=== PATIENT | female | born 1935 | race Caucasian/White ===

== ENCOUNTER 2016-09-18 13:28 | Emergency (ER) | payer MEDICARE ==
[2016-09-18 15:06] LABS: Basophils % (A) 0 %; CH 29.8; CHCM 33.2; Eosinophils % (A) 0 %; HCT 36.5 % (34.0-46.0); HDW 3.43; HGB 12.2 gm/dL (11.4-16.0); Luc # (Auto) 0.12; Luc % (Auto) 3; Lymphocytes # (A) 0.7 k/uL (1.0-4.8); Lymphocytes % (A) 15 %; MCH 30.2 pg (25.0-35.0); MCHC 33.4 g/dL (31.0-37.0); MCV 90.3 fL (80.0-100.0); Mean Platelet Volume 7.1; Monocytes # (A) 0.3 k/uL (0-1.0); Monocytes % (A) 6 %; Neutrophils # (A) 3.5 k/uL (1.3-7.7); Neutrophils % (A) 76 %; Poikilocytosis Slight; RBC 4.04 m/uL (3.80-5.40); RDW 13.8 % (11.5-15.5); WBC 4.6 k/uL (3.8-10.6); WBC (Perox) 4.48
[2016-09-18] MEDS ORDERED: cefTRIAXone 2,000 MG in SODIUM CHLORIDE 0.9% 100 ML IVPB STA (15:11)
[2016-09-18] MEDS ORDERED: MORPHINE SULFATE 4 MG/ML SYRINGE IVP STA (15:15)
[2016-09-18] MEDS ORDERED: ONDANSETRON 4 MG/2 ML VIAL IVP STA (15:15)
[2016-09-18 15:16] LABS: INR 1.1 (<1.1); Partial Thromboplastin Time 22.5 sec (22.0-30.0); Prothrombin Time 10.9 sec (9.0-12.0)
[2016-09-18 15:22] LABS: ALT 26 U/L (9-52); AST 26 U/L (14-36); Alkaline Phosphatase 73 U/L (38-126); Anion Gap 14 mmol/L; Blood Urea Nitrogen 9 mg/dL (7-17); Calcium 9.1 mg/dL (8.4-10.2); Carbon Dioxide 29 mmol/L (22-30); Chloride 97 mmol/L (98-107); Glucose 135 mg/dL (74-99); Magnesium 1.8 mg/dL (1.6-2.3); Non-African American GFR(MDRD) >60 (>60 ml/min/1.73 sqM); Sodium 140 mmol/L (137-145); Total Protein 7.2 g/dL (6.3-8.2)
[2016-09-18 15:24] LABS: Potassium 2.6 mmol/L (3.5-5.1)
[2016-09-18] MEDS ORDERED: ACETAMINOPHEN TAB 500 MG TAB PO STA (15:27)
[2016-09-18] MEDS ORDERED: POTASSIUM CHLORIDE ORAL LIQUID 40 MEQ/30 ML CUP PO ONE ×2 (15:27)
--- NOTE | 2016-09-18 15:30 | XR ---
EXAMINATION TYPE: XR chest 2V DATE OF EXAM: 09/18/2016 3:17 PM COMPARISON: 05/05/2016 HISTORY: Weakness TECHNIQUE: Frontal and lateral views of the chest are obtained. FINDINGS: There is no heart failure nor confluent pneumonic infiltrate. There are no hilar masses. T here are chest leads. There is old left posterior healed rib fractures. Thoracic aorta is atheromatou s. IMPRESSION: No active cardiopulmonary disease. No change.
[2016-09-18 15:32] LABS: Creatine Kinase 96 U/L (30-135)
--- NOTE | 2016-09-18 15:36 | CT ---
EXAMINATION TYPE: CT brain wo con DATE OF EXAM: 09/18/2016 3:29 PM COMPARISON: 05/07/2015 HISTORY: Weakness. CT DLP: 1072.90 mGycm Automated exposure control for dose reduction was used. FINDINGS: There is diffuse moderate cerebral cortical atrophy. There is no mass effect nor midline shift. There is no sign of intracranial hemorrhage. The calvarium is intact. IMPRESSION: Cerebral atrophy. No acute intracranial abnormality. Chronic small vessel ischemia. No adverse change compared to old exam.
[2016-09-18 15:43] LABS: Creatine Kinase MB 0.5 ng/mL (0.0-2.4); Troponin I <0.012 ng/mL (0.000-0.034)
[2016-09-18 16:53] VITALS: RESP 18
--- NOTE | 2016-09-18 17:46 | ED ---
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 and the headaches been worse since she had a closed head injury there was about 4 years ago on arrival her blood pressure is 323/33 we repeated the blood pressure and it was 175/74 and later he dropped down to 155 systolic she had some emesis last night denies any neck stiffness denies any fever no chills no abdominal pain at this point no frequency urgency dysuria no symptoms of TIA or CVA - Related Data Home Medications Medication Instructions Recorded Confirmed Atorvastatin [Lipitor] 10 mg PO DAILY 05/05/15 09/18/16 Levothyroxine Sodium [Synthroid] 25 mcg PO DAILY 05/05/15 09/18/16 Valsartan [Diovan] 40 mg PO BID 05/05/15 09/18/16 levETIRAcetam [Keppra] 500 mg PO BID 05/05/15 09/18/16 Vortioxetine Hydrobromide 20 mg PO DAILY 05/04/16 09/18/16 [Trintellix] HYDROcodone/APAP 10-325MG [Ozone 1 tab PO Q4HR PRN 09/18/16 09/18/16 10-325] Previous Rx's Medication Instructions Recorded Acetaminophen Tab [Tylenol] 650 mg PO Q6HR PRN #0 tab 05/07/16 Potassium Chloride [Klor-Con] 40 meq PO DAILY #5 packet 09/18/16 predniSONE 50 mg PO DAILY #5 tab 09/18/16 Allergies Allergy/AdvReac Type Severity Reaction Status Date / Time No Known Allergies Allergy Verified 09/18/16 13:51 Review of Systems ROS Statement: Those systems with pertinent positive or pertinent negative responses have been documented in the HPI. ROS Other: All systems not noted in ROS Statement are negative. Past Medical History Past Medical History: COPD, Hyperlipidemia, Hypertension, Thyroid Disorder Additional Past Medical History / Comment(s): 05/05/15 R hip pain following fall. Pt states she lost balance and fell. She is being admitted with fracture neck R femur. Other HX: closed head injuries with falls and once with brain bleed following fall- on keppra prophlactically, odontoid fx 2014, L hip fx after fall with surgey, hypothyroidism, UTI. History of Any Multi-Drug Resistant Organisms: None Reported Past Surgical History: Adenoidectomy, Appendectomy, Cholecystectomy, Hysterectomy, Joint Replacement, Orthopedic Surgery, Tonsillectomy Additional Past Surgical History / Comment(s): partial left hip replacement Past Anesthesia/Blood Transfusion Reactions: No Reported Reaction Additional Past Anesthesia/Blood Transfusion Reaction / Comment(s): Pt has received blood without reaction. Past Psychological History: Depression Additional Psychological History / Comment(s): Pt resides with her daughter, Deb. She uses a walker to ambulate. She is independent with her ADLs. 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 She does not drive-her gutierrez takes her to appts. Smoking Status: Current every day smoker Past Alcohol Use History: None Reported Additional Past Alcohol Use History / Comment(s): Pt smokes about 1/2 ppd. She started smoking about age 59 yrs. Past Drug Use History: None Reported - Past Family History Father Family Medical History: CVA/TIA Additional Family Medical History / Comment(s): Father had several CVAs and at age 72 yrs. Mother Family Medical History: Cancer Additional Family Medical History / Comment(s): Mother had cancer (do not know type) and at age 72 yrs. General Exam - General Exam Comments Initial Comments: General: The patient is awake and alert, in mild distress because of the headache Skin: Skin is warm and dry and no rashes or lesions are noted. Eye: Pupils are equal, round and reactive to light, extra-ocular movements are intact; there is normal conjunctiva bilaterally. Ears, nose, mouth and throat: There are moist mucous membranes and no oral lesions. Neck: The neck is supple, there is no tenderness Cardiovascular: There is a regular rate and rhythm. No murmur, rub or gallop is appreciated. Respiratory: To auscultation bilateral, no wheezing no rhonchi no distress respiratory contreras noticed Gastrointestinal: Soft, non-distended, non-tender abdomen without masses or organomegaly noted. There is no rebound or guarding present. Bowel sounds are unremarkable. Back: There is no tenderness to palpation in the midline. There is no obvious deformity. Musculoskeletal: Normal ROM, no tenderness, There is no pedal edema. There is no calf tenderness or swelling. No cords were appreciated. Neurological: CN II-XII intact, Cranial nerves III through XII are intact. There are no obvious motor or sensory deficits. Coordination appears grossly intact. Speech is normal. Psychiatric: Cooperative, appropriate mood & affect, normal judgment. Limitations: no limitations Course Vital Signs 09/18/16 09/18/16 09/18/16 13:32 14:59 15:31 Temperature 98.4 F 100.4 F H Pulse Rate 81 64 67 Respiratory 16 17 16 Rate Blood Pressure 223/133 184/85 164/74 O2 Sat by Pulse 94 L 95 95 Oximetry 09/18/16 16:52 Temperature 99.0 F Pulse Rate 61 Respiratory 18 Rate Blood Pressure 150/71 O2 Sat by Pulse 97 Oximetry She was giving some mom morphine and Zofran for nausea as well as headache, her labs are reviewed and now those were discussed with the family CBC is negative INR is negative potassium is 2.6, BS metabolic panel troponin head CT and chest x-ray all ordered negative, she has this chronic headache and she has a history of multiple falls I had a discussion at great length with the family that starting her on any narcotics wouldn't improve her chances of for first and her chances of fall that's from one at home that we'll do a trial of prednisone 50 mg daily for for next 5 days and as far as as far as potassium is concerned she be on given potassium 40 mEq by mouth daily for next 3 days and she will go see her family doctor and get a potassium level checked - Reevaluation(s) Reevaluation #1: 09/18/16 17:49 And discussion with the patient and her son her son is a registered nurse they are comfortable going home and they're happy to follow with the family doctor in next day or 2 as well as potassium is concerned Medical Decision Making - Lab Data Result diagrams: 09/18/16 14:16 09/18/16 14:16 Lab Results 09/18/16 09/18/16 09/18/16 Range/Units 14:16 14:16 14:16 WBC 4.6 (3.8-10.6) k/uL RBC 4.04 (3.80-5.40) m/uL Hgb 12.2 (11.4-16.0) gm/dL Hct 36.5 (34.0-46.0) % MCV 90.3 (80.0-100.0) fL MCH 30.2 (25.0-35.0) pg MCHC 33.4 (31.0-37.0) g/dL RDW 13.8 (11.5-15.5) % Plt Count 151 (150-450) k/uL Neutrophils % 76 % Lymphocytes % 15 % Monocytes % 6 % Eosinophils % 0 % Basophils % 0 % Neutrophils # 3.5 (1.3-7.7) k/uL Lymphocytes # 0.7 L (1.0-4.8) k/uL Monocytes # 0.3 (0-1.0) k/uL Eosinophils # 0.0 (0-0.7) k/uL Basophils # 0.0 (0-0.2) k/uL Poikilocytosis Slight PT (9.0-12.0) sec INR (<1.1) APTT (22.0-30.0) sec Sodium 140 (137-145) mmol/L Potassium 2.6 L* (3.5-5.1) mmol/L Chloride 97 L (98-107) mmol/L Carbon Dioxide 29 (22-30) mmol/L Anion Gap 14 mmol/L BUN 9 (7-17) mg/dL Creatinine 0.76 (0.52-1.04) mg/dL Est GFR (MDRD) Af Amer >60 (>60 ml/min/1.73 sqM) Est GFR (MDRD) Non-Af >60 (>60 ml/min/1.73 sqM) Glucose 135 H (74-99) mg/dL Plasma Lactic Acid Tristan (0.7-2.0) mmol/L Calcium 9.1 (8.4-10.2) mg/dL Magnesium 1.8 (1.6-2.3) mg/dL Total Bilirubin 1.0 (0.2-1.3) mg/dL AST 26 (14-36) U/L ALT 26 (9-52) U/L Alkaline Phosphatase 73 (38-126) U/L Total Creatine Kinase 96 (30-135) U/L CK-MB (CK-2) 0.5 (0.0-2.4) ng/mL CK-MB (CK-2) Rel Index 0.5 Troponin I <0.012 (0.000-0.034) ng/mL Total Protein 7.2 (6.3-8.2) g/dL Albumin 4.2 (3.5-5.0) g/dL 09/18/16 09/18/16 Range/Units 14:16 14:16 WBC (3.8-10.6) k/uL RBC (3.80-5.40) m/uL Hgb (11.4-16.0) gm/dL Hct (34.0-46.0) % MCV (80.0-100.0) fL MCH (25.0-35.0) pg MCHC (31.0-37.0) g/dL RDW (11.5-15.5) % Plt Count (150-450) k/uL Neutrophils % % Lymphocytes % % Monocytes % % Eosinophils % % Basophils % % Neutrophils # (1.3-7.7) k/uL Lymphocytes # (1.0-4.8) k/uL Monocytes # (0-1.0) k/uL Eosinophils # (0-0.7) k/uL Basophils # (0-0.2) k/uL Poikilocytosis PT 10.9 (9.0-12.0) sec INR 1.1 (<1.1) APTT 22.5 (22.0-30.0) sec Sodium (137-145) mmol/L Potassium (3.5-5.1) mmol/L Chloride (98-107) mmol/L Carbon Dioxide (22-30) mmol/L Anion Gap mmol/L BUN (7-17) mg/dL Creatinine (0.52-1.04) mg/dL Est GFR (MDRD) Af Amer (>60 ml/min/1.73 sqM) Est GFR (MDRD) Non-Af (>60 ml/min/1.73 sqM) Glucose (74-99) mg/dL Plasma Lactic Acid Tristan 1.5 (0.7-2.0) mmol/L Calcium (8.4-10.2) mg/dL Magnesium (1.6-2.3) mg/dL Total Bilirubin (0.2-1.3) mg/dL AST (14-36) U/L ALT (9-52) U/L Alkaline Phosphatase (38-126) U/L Total Creatine Kinase (30-135) U/L CK-MB (CK-2) (0.0-2.4) ng/mL CK-MB (CK-2) Rel Index Troponin I (0.000-0.034) ng/mL Total Protein (6.3-8.2) g/dL Albumin (3.5-5.0) g/dL Disposition Clinical Impression: Headache, Hypokalemia Disposition: HOME SELF-CARE Condition: Fair Prescriptions: Potassium Chloride [Klor-Con] 40 meq PO DAILY #5 packet predniSONE 50 mg PO DAILY #5 tab
[2016-09-18 17:47] LABS: Appearance,Urine Cloudy (Clear); Bacteria,Urine Few /hpf; Bilirubin,Urine Negative (Negative); Glucose,Urine (UA) Negative (Negative); Ketones,Urine 1+ (Negative); Leukocyte Esterase,Urine Negative (Negative); Mucus,Urine Rare /hpf; Nitrite,Urine Positive (Negative); Particle Count 10467; Protein,Urine 2+ (Negative); RBC,Urine 18 /hpf (0-5); Specific Gravity,Urine 1.019 (1.001-1.035); Squamous Epithelial Cell,Urine 3 /hpf (0-4); UA Billing (MACRO vs. MICRO) MICRO; Urobilinogen,Urine <2.0 mg/dL (<2.0); WBC,Urine 10 /hpf (0-5)
[2016-09-18 18:17] VITALS: BP 142/67; PULSE 88; TEMP 98.5
== END 2016-09-18 18:20 | disposition home or self-care (01) ==
LOC: EC 13:28
DX: E87.6 Hypokalemia (principal); R51 Headache; R11.2 Nausea with vomiting, unspecified; F17.200 Nicotine dependence, unspecified, uncomplicated; E78.5 Hyperlipidemia, unspecified; I10 Essential (primary) hypertension; E07.9 Disorder of thyroid, unspecified; F32.9 Major depressive disorder, single episode, unspecified; Z79.899 Other long term (current) drug therapy
CPT/HCPCS: 36415; 93005; 80053; 82550; 82553; 83605; 83735; 84484; 85025; 85610; 85730; 81001; 87040; 71020; 70450; 99285; 96365; 96366 ×2; 96375 ×2; J2270; J2405; J0696

== ENCOUNTER 2017-08-15 10:14 | Emergency (ER) | payer MEDICARE ==
--- NOTE | 2017-08-15 11:21 | ED ---
General Adult HPI - General Chief complaint: Fall Stated complaint: Fall Time Seen by Provider: 08/15/17 10:39 Source: patient, family, EMS, RN notes reviewed Mode of arrival: EMS Limitations: no limitations - History of Present Illness Initial comments: This 81-year-old female presents emergency Department chief complaint fall. Patient states that she became dizzy, lightheaded and states that she had fallen. Patient states that she struck the back of her head, neck region on the cabinet and fell down the ground. She does complain of pain along her neck and upper back region. She's had a prior cervical fracture. Patient denies any extremity injuries. She does complain of bilateral hip pain but states this is slightly chronic in nature. She denies any low back pain denies any bowel bladder incontinence or retention. Patient states that there is no loss conscious. Family did pick her up FOR burn bed because she wanted to rest. Patient symptoms were not improving so they called EMS. - Related Data Home Medications Medication Instructions Recorded Confirmed Atorvastatin [Lipitor] 10 mg PO HS 05/05/15 08/15/17 Levothyroxine Sodium [Synthroid] 25 mcg PO DAILY 05/05/15 08/15/17 Valsartan [Diovan] 40 mg PO BID 05/05/15 08/15/17 levETIRAcetam [Keppra] 500 mg PO BID 05/05/15 08/15/17 DULoxetine HCL [Cymbalta] 60 mg PO DAILY 08/15/17 08/15/17 HYDROcodone/APAP 5-325MG [Yarnell 1 tab PO Q6H PRN 08/15/17 08/15/17 5-325] buPROPion HCL [Wellbutrin SR] 150 mg PO BID 08/15/17 08/15/17 Previous Rx's Medication Instructions Recorded Sulfamethox-Tmp 800-160Mg [Bactrim 1 each PO Q12HR #10 tab 08/15/17 Ds] Allergies Allergy/AdvReac Type Severity Reaction Status Date / Time No Known Allergies Allergy Verified 08/15/17 11:08 Review of Systems ROS Statement: Those systems with pertinent positive or pertinent negative responses have been documented in the HPI. ROS Other: All systems not noted in ROS Statement are negative. Past Medical History Past Medical History: COPD, Hyperlipidemia, Hypertension, Thyroid Disorder Additional Past Medical History / Comment(s): 05/05/15 R hip pain following fall. Pt states she lost balance and fell. She is being admitted with fracture neck R femur. Other HX: closed head injuries with falls and once with brain bleed following fall- on keppra prophlactically, odontoid fx 2013, L hip fx after fall with surgey, hypothyroidism, UTI. History of Any Multi-Drug Resistant Organisms: None Reported Past Surgical History: Adenoidectomy, Appendectomy, Cholecystectomy, Hysterectomy, Joint Replacement, Orthopedic Surgery, Tonsillectomy Additional Past Surgical History / Comment(s): partial left hip replacement Past Anesthesia/Blood Transfusion Reactions: No Reported Reaction Additional Past Anesthesia/Blood Transfusion Reaction / Comment(s): Pt has received blood without reaction. Past Psychological History: Depression Smoking Status: Current every day smoker Past Alcohol Use History: None Reported Past Drug Use History: None Reported - Past Family History Father Family Medical History: CVA/TIA Additional Family Medical History / Comment(s): Father had several CVAs and at age 72 yrs. Mother Family Medical History: Cancer Additional Family Medical History / Comment(s): Mother had cancer (do not know type) and at age 72 yrs. General Exam Limitations: no limitations General appearance: alert, in no apparent distress Head exam: Present: atraumatic, normocephalic, normal inspection Eye exam: Present: normal appearance, PERRL, EOMI. Absent: scleral icterus, conjunctival injection, periorbital swelling ENT exam: Present: normal exam, normal oropharynx, mucous membranes moist, TM's normal bilaterally, normal external ear exam Neck exam: Present: normal inspection, tenderness. Absent: meningismus, full ROM (Patient in c-collar), lymphadenopathy Respiratory exam: Present: normal lung sounds bilaterally. Absent: respiratory distress, wheezes, rales, rhonchi, stridor, chest wall tenderness Cardiovascular Exam: Present: regular rate, normal rhythm, normal heart sounds. Absent: systolic murmur, diastolic murmur, rubs, gallop, clicks GI/Abdominal exam: Present: soft, normal bowel sounds. Absent: distended, tenderness, guarding, rebound, rigid Extremities exam: Present: normal inspection, full ROM, normal capillary refill. Absent: tenderness, pedal edema, joint swelling, calf tenderness Back exam: Present: full ROM, tenderness (Tenderness diffusely of the thoracic region, over the bilateral scapular region), vertebral tenderness. Absent: paraspinal tenderness Neurological exam: Present: alert, oriented X3, CN II-XII intact, reflexes normal. Absent: motor sensory deficit Skin exam: Present: warm, dry, intact, normal color. Absent: rash Course Vital Signs 08/15/17 08/15/17 10:25 11:38 Temperature 98.4 F Pulse Rate 85 77 Respiratory 16 16 Rate Blood Pressure 199/81 193/95 O2 Sat by Pulse 95 95 Oximetry Medical Decision Making - Medical Decision Making 81-year-old female presented emergency department with chief complaint of fall. Patient did have an episode of dizziness prior to it. She's been having ongoing dizziness. Patient x-ray shows possible new be determined compression fracture. Patient does have chronic pain meds at home. She'll follow up with her primary care physician. Patient CT unremarkable. Patient does have nitrite positive UTI. Patient's laboratory does reveal mild hypokalemia with this was replaced. Patient will be discharged at this time. - Lab Data Result diagrams: 08/15/17 11:17 08/15/17 11:17 Lab Results 08/15/17 08/15/17 08/15/17 Range/Units 11:17 11:17 11:17 WBC 7.6 (3.8-10.6) k/uL RBC 4.15 (3.80-5.40) m/uL Hgb 11.9 (11.4-16.0) gm/dL Hct 36.9 (34.0-46.0) % MCV 89.1 (80.0-100.0) fL MCH 28.6 (25.0-35.0) pg MCHC 32.1 (31.0-37.0) g/dL RDW 13.5 (11.5-15.5) % Plt Count 201 (150-450) k/uL Neutrophils % 83 % Lymphocytes % 10 % Monocytes % 4 % Eosinophils % 1 % Basophils % 0 % Neutrophils # 6.3 (1.3-7.7) k/uL Lymphocytes # 0.7 L (1.0-4.8) k/uL Monocytes # 0.3 (0-1.0) k/uL Eosinophils # 0.1 (0-0.7) k/uL Basophils # 0.0 (0-0.2) k/uL Sodium 142 (137-145) mmol/L Potassium 3.1 L (3.5-5.1) mmol/L Chloride 102 (98-107) mmol/L Carbon Dioxide 29 (22-30) mmol/L Anion Gap 11 mmol/L BUN 8 (7-17) mg/dL Creatinine 0.82 (0.52-1.04) mg/dL Est GFR (MDRD) Af Amer >60 (>60 ml/min/1.73 sqM) Est GFR (MDRD) Non-Af >60 (>60 ml/min/1.73 sqM) Glucose 93 (74-99) mg/dL Calcium 9.3 (8.4-10.2) mg/dL Magnesium 2.0 (1.6-2.3) mg/dL Total Bilirubin 0.7 (0.2-1.3) mg/dL AST 21 (14-36) U/L ALT 26 (9-52) U/L Alkaline Phosphatase 83 (38-126) U/L Troponin I <0.012 (0.000-0.034) ng/mL Total Protein 6.6 (6.3-8.2) g/dL Albumin 3.7 (3.5-5.0) g/dL Urine Color Urine Appearance (Clear) Urine pH (5.0-8.0) Ur Specific Bussey (1.001-1.035) Urine Protein (Negative) Urine Glucose (UA) (Negative) Urine Ketones (Negative) Urine Blood (Negative) Urine Nitrite (Negative) Urine Bilirubin (Negative) Urine Urobilinogen (<2.0) mg/dL Ur Leukocyte Esterase (Negative) Urine WBC (0-5) /hpf Ur Squamous Epith Cells (0-4) /hpf Urine Bacteria (None) /hpf Hyaline Casts (0-2) /lpf 08/15/17 Range/Units 13:30 WBC (3.8-10.6) k/uL RBC (3.80-5.40) m/uL Hgb (11.4-16.0) gm/dL Hct (34.0-46.0) % MCV (80.0-100.0) fL MCH (25.0-35.0) pg MCHC (31.0-37.0) g/dL RDW (11.5-15.5) % Plt Count (150-450) k/uL Neutrophils % % Lymphocytes % % Monocytes % % Eosinophils % % Basophils % % Neutrophils # (1.3-7.7) k/uL Lymphocytes # (1.0-4.8) k/uL Monocytes # (0-1.0) k/uL Eosinophils # (0-0.7) k/uL Basophils # (0-0.2) k/uL Sodium (137-145) mmol/L Potassium (3.5-5.1) mmol/L Chloride (98-107) mmol/L Carbon Dioxide (22-30) mmol/L Anion Gap mmol/L BUN (7-17) mg/dL Creatinine (0.52-1.04) mg/dL Est GFR (MDRD) Af Amer (>60 ml/min/1.73 sqM) Est GFR (MDRD) Non-Af (>60 ml/min/1.73 sqM) Glucose (74-99) mg/dL Calcium (8.4-10.2) mg/dL Magnesium (1.6-2.3) mg/dL Total Bilirubin (0.2-1.3) mg/dL AST (14-36) U/L ALT (9-52) U/L Alkaline Phosphatase (38-126) U/L Troponin I (0.000-0.034) ng/mL Total Protein (6.3-8.2) g/dL Albumin (3.5-5.0) g/dL Urine Color Light Yellow Urine Appearance Clear (Clear) Urine pH 7.5 (5.0-8.0) Ur Specific Bussey 1.005 (1.001-1.035) Urine Protein Negative (Negative) Urine Glucose (UA) Negative (Negative) Urine Ketones Negative (Negative) Urine Blood Negative (Negative) Urine Nitrite Positive H (Negative) Urine Bilirubin Negative (Negative) Urine Urobilinogen <2.0 (<2.0) mg/dL Ur Leukocyte Esterase Small H (Negative) Urine WBC 2 (0-5) /hpf Ur Squamous Epith Cells 1 (0-4) /hpf Urine Bacteria Occasional H (None) /hpf Hyaline Casts 3 H (0-2) /lpf Disposition Clinical Impression: Fall, Thoracic compression fracture, UTI (urinary tract infection) Disposition: HOME SELF-CARE Condition: Stable Instructions: Vertebral Compression Fracture (ED) Additional Instructions: Please return to the Emergency Department if symptoms worsen or any other concerns. Prescriptions: Sulfamethox-Tmp 800-160Mg [Bactrim Ds] 1 each PO Q12HR #10 tab Referrals: Ladonna Mobley MD [Primary Care Provider] - 1-2 days Poncho Mcdaniel DO [Doctor of Osteopathic Medicine] - 1-2 days Time of Disposition: 14:02
[2017-08-15] MEDS ORDERED: HYDROcodone/APAP 5-325MG 1 EACH TAB PO STA ×2 (11:22→13:25)
[2017-08-15 11:46] LABS: Basophils % (A) 0 %; Eosinophils # (A) 0.1 k/uL (0-0.7); Eosinophils % (A) 1 %; HCT 36.9 % (34.0-46.0); HGB 11.9 gm/dL (11.4-16.0); Lymphocytes # (A) 0.7 k/uL (1.0-4.8); Lymphocytes % (A) 10 %; MCH 28.6 pg (25.0-35.0); MCHC 32.1 g/dL (31.0-37.0); MCV 89.1 fL (80.0-100.0); Mean Platelet Volume 6.8; Monocytes # (A) 0.3 k/uL (0-1.0); Monocytes % (A) 4 %; Neutrophils # (A) 6.3 k/uL (1.3-7.7); Neutrophils % (A) 83 %; Platelet Count 201 k/uL (150-450); RBC 4.15 m/uL (3.80-5.40); RDW 13.5 % (11.5-15.5); WBC 7.6 k/uL (3.8-10.6)
[2017-08-15 11:49] LABS: ALT 26 U/L (9-52); AST 21 U/L (14-36); Albumin 3.7 g/dL (3.5-5.0); Alkaline Phosphatase 83 U/L (38-126); Anion Gap 11 mmol/L; Blood Urea Nitrogen 8 mg/dL (7-17); Calcium 9.3 mg/dL (8.4-10.2); Carbon Dioxide 29 mmol/L (22-30); Chloride 102 mmol/L (98-107); Glucose 93 mg/dL (74-99); Potassium 3.1 mmol/L (3.5-5.1); Sodium 142 mmol/L (137-145); Total Bilirubin 0.7 mg/dL (0.2-1.3); Total Protein 6.6 g/dL (6.3-8.2)
--- NOTE | 2017-08-15 11:54 | CT ---
EXAMINATION TYPE: CT brain tj berry con DATE OF EXAM: 08/15/2017 COMPARISON: Brain 09/18/2016 HISTORY: 81-year-old female poor historian. Patient fell today. Patient complains of dizziness at t raciel of fall. CT DLP: 1436 mGycm Automated exposure control for dose reduction was used. Technique: Examination of the head was done in axial plane without intravenous contrast. Coronal and sagittal reconstructions performed. CT of the cervical spine was obtained in axial plane without intravenous injection of contrast mater ial. Coronal and sagittal reformatted images were obtained from the axial views for evaluation of f ractures, spinal alignment and canal. FINDINGS: Head: There is no evidence of acute intracranial hemorrhage, acute ischemic changes, mass, mass-effect, or extra-axial fluid collection. There is no effacement of cerebral sulci or basal subarachnoid cister ns. There is no hydrocephalus. There is no midline shift. Clemens-white matter distinction is preserv ed. There is moderate generalized supratentorial volume loss. Paranasal sinuses and mastoid air cells are well pneumatized. Orbits and globes are intact. Cervical spine: No craniocervical junction abnormality, predental space widening, or prevertebral soft tissue swellin g. Degenerative change at the C1 dens articulation. Moderate multilevel degenerative disc disease especially from C5 through C7 levels. Disc osteophyte c omplex at C6-C7 mildly narrowing the spinal canal. Additional there are facet and uncovertebral joint degenerative change. Changes result in very minima l mild neuroforaminal stenoses. No acute fracture of the cervical spine. Alignment is maintained. Sagittal and coronal reformatted images confirm above findings. COMBINED IMPRESSION: 1. Moderate generalized atrophy. No acute intracranial abnormality seen. 2. No acute fracture or malalignment of the cervical spine. Moderate spondylotic change.
--- NOTE | 2017-08-15 12:35 | XR ---
EXAMINATION TYPE: XR chest 2V DATE OF EXAM: 08/15/2017 COMPARISON: 09/18/2016 TECHNIQUE: PA and lateral views submitted. HISTORY: Pain post fall FINDINGS: Diffuse osteopenia with arthropathy of the shoulders. Deformity of the rib cage suggest remote trauma . No pneumothorax. No consolidation or pleural effusion. No interstitial edema. Hypertrophic and degene rative change of the spine. Surgical clip and IVC filter seen within the abdomen on the lateral view. Question a small hiatal her cheryle. IMPRESSION: 1. No definite acute process.
--- NOTE | 2017-08-15 12:37 | XR ---
EXAMINATION TYPE: XR pelvis AP view DATE OF EXAM: 08/15/2017 COMPARISON: 05/05/2015 HISTORY: Pain The osseous structures are intact and the joint spaces are preserved. No acute fracture is seen. Vi sualized bowel gas pattern is nonspecific. Postsurgical change involving the hip joints bilaterally. There are deformities involving the pubic rami which likely are chronic. Correlate with point tender ness. Degenerative change lower lumbar spine. IMPRESSION: 1. No acute fracture. Deformities involving the pubic rami appear to be present on the previous exam are most typical previous trauma. If there is high clinical suspicion correlate with CT scan given th e limitation of the exam.
--- NOTE | 2017-08-15 12:39 | XR ---
EXAMINATION TYPE: XR thoracic spine 2V DATE OF EXAM: 08/15/2017 COMPARISON: NONE HISTORY: Pain Alignment is anatomic. There is multilevel mild degenerative disc disease. There is a wedge deformit y at the thoracolumbar junction which is stable from a chest x-ray 05/05/2016. Within the upper thora cic spine there is a moderate superior endplate deformity of indeterminate age. Surgical clips and IVC filter noted in the abdomen. IMPRESSION: 1. Multilevel degenerative disc disease with a chronic compression fracture of the thoracolumbar junc tion. However, there is a age indeterminate superior endplate moderate deformity of the mid to upper thoracic segment. Correlate clinically
[2017-08-15] MEDS ORDERED: POTASSIUM CHLORIDE ER 20 MEQ TAB.ER PO STA (13:25)
[2017-08-15 13:46] LABS: Appearance,Urine Clear (Clear); Bacteria,Urine Occasional /hpf; Bilirubin,Urine Negative (Negative); Blood,Urine Negative (Negative); Color,Urine Light Yellow; Glucose,Urine (UA) Negative (Negative); Hyaline Casts,Urine 3 /lpf (0-2); Ketones,Urine Negative (Negative); Leukocyte Esterase,Urine Small (Negative); Nitrite,Urine Positive (Negative); PH, Urine 7.5 (5.0-8.0); Protein,Urine Negative (Negative); Specific Gravity,Urine 1.005 (1.001-1.035); Squamous Epithelial Cell,Urine 1 /hpf (0-4); Urobilinogen,Urine <2.0 mg/dL (<2.0); WBC,Urine 2 /hpf (0-5)
[2017-08-15] MEDS ORDERED: cefTRIAXone IN SWFI 1,000 MG/10 ML SYRINGE IVP STA (14:00)
[2017-08-15 14:24] VITALS: BP 178/81; PULSE 88; RESP 15; TEMP 97.9
== END 2017-08-15 14:30 | disposition home or self-care (01) ==
LOC: EC 10:14
DX: S22.000A Wedge compression fracture of unspecified thoracic vertebra, initial encounter for closed fracture (principal); N39.0 Urinary tract infection, site not specified; E87.6 Hypokalemia; R42 Dizziness and giddiness; M54.2 Cervicalgia; M25.552 Pain in left hip; M25.551 Pain in right hip; E78.5 Hyperlipidemia, unspecified; I10 Essential (primary) hypertension; E03.9 Hypothyroidism, unspecified; F32.9 Major depressive disorder, single episode, unspecified; F17.200 Nicotine dependence, unspecified, uncomplicated; Z79.899 Other long term (current) drug therapy; W18.09XA Striking against other object with subsequent fall, initial encounter; Y92.009 Unspecified place in unspecified non-institutional (private) residence as the place of occurrence of the external cause
CPT/HCPCS: 36415; 93005; 80053; 83735; 84484; 85025; 81001; 87086; 72070; 72170; 71046; 72125; 70450; 99284; 96374; J0696; 87077; 87186

== ENCOUNTER 2018-06-27 00:13 | Emergency (ER) | payer MEDICARE, OTHER ==
[2018-06-27] MEDS ORDERED: MORPHINE SULFATE 4 MG/ML SYRINGE ONE (00:41)
[2018-06-27] MEDS ORDERED: DIPH,PERTUS(ACELL)TETVAC-LF 0.5 ML VIAL IM ONE (04:05)
[2018-06-27 06:12] LABS: Basophils # (A) 0.1 k/uL (0-0.2); Basophils % (A) 1 %; Eosinophils # (A) 0.4 k/uL (0-0.7); Eosinophils % (A) 5 %; HCT 36.8 % (34.0-46.0); HGB 11.9 gm/dL (11.4-16.0); Lymphocytes # (A) 1.7 k/uL (1.0-4.8); Lymphocytes % (A) 21 %; MCH 28.9 pg (25.0-35.0); MCHC 32.4 g/dL (31.0-37.0); Mean Platelet Volume 7.5; Monocytes # (A) 0.5 k/uL (0-1.0); Monocytes % (A) 7 %; Neutrophils # (A) 5.1 k/uL (1.3-7.7); Neutrophils % (A) 64 %; Platelet Count 137 k/uL (150-450); RBC 4.14 m/uL (3.80-5.40); RDW 15.2 % (11.5-15.5); WBC 7.9 k/uL (3.8-10.6)
[2018-06-27 06:12] LABS: Albumin 3.9 g/dL (3.5-5.0); Calcium 9.3 mg/dL (8.4-10.2); Potassium 4.5 mmol/L (3.5-5.1); Total Bilirubin 1.1 mg/dL (0.2-1.3)
[2018-06-27 06:18] LABS: INR 0.9 (<1.2); Partial Thromboplastin Time 23.4 sec (22.0-30.0); Prothrombin Time 10.1 sec (9.0-12.0)
--- NOTE | 2018-06-27 12:12 | CT ---
EXAM: CT Head Without Intravenous Contrast CLINICAL HISTORY: fall, c-collared TECHNIQUE: Axial computed tomography images of the head/brain without intravenous contrast. CTDI is 25.8 mGy and DLP is 870.9 mGy-cm. This CT exam was performed using one or more of the following dose reduction techniques: automated exposure control, adjustment of the mA and/or kV according to patient size, and/or use of iterative reconstruction technique. COMPARISON: No relevant prior studies available. FINDINGS: Brain: Enlarged ventricles and sulci consistent with cerebral atrophy. Mild periventricular white matter low density likely reflects chronic small vessel disease. No hemorrhage. Ventricles: See above. Bones/joints: Right mandibular condyle fracture with displacement. Soft tissues: Mild high frontal scalp swelling. Nasal soft tissue swelling/hematoma. Sinuses: Unremarkable as visualized. No acute sinusitis. Mastoid air cells: Unremarkable as visualized. No mastoid effusion. Orbits: Bilateral cataract surgery. IMPRESSION: 1. No evidence of acute intracranial abnormality or skull fracture. 2. Mild high frontal scalp swelling. 3. Right mandibular condyle fracture with displacement. See facial CT. 4. Nasal soft tissue swelling/hematoma. EXAM: CT Maxillofacial Without Intravenous Contrast CLINICAL HISTORY: fall, c-collared TECHNIQUE: Axial computed tomography images of the face without intravenous contrast. CTDI is 25.8 mGy and DLP is 870.9 mGy-cm. This CT exam was performed using one or more of the following dose reduction techniques: automated exposure control, adjustment of the mA and/or kV according to patient size, and/or use of iterative reconstruction technique. COMPARISON: No relevant prior studies available. FINDINGS: Bones/joints: Right mandibular condyle fracture with displacement. The condylar fracture fragment is displaced/dislocated anteriorly. Soft tissues: Nasal soft tissue swelling/hematoma. Query lacerations of the lips and chin. Orbits: Bilateral cataract surgery. Submandibular/parotid glands: 5 mm calcification in the right submandibular gland. Likely sialolith. Sinuses: Minimal paranasal sinus mucosal thickening of the ethmoid air cells. No fluid levels. Dental: Edentulous. IMPRESSION: 1. Right mandibular condyle fracture with displacement. The condylar fracture fragment is displaced/dislocated anteriorly. 2. Nasal soft tissue swelling/hematoma. 3. Query lacerations of the lips and chin. EXAM: CT Cervical Spine Without Intravenous Contrast CLINICAL HISTORY: fall, c-collared TECHNIQUE: Axial computed tomography images of the cervical spine without intravenous contrast. CTDI is 25.8 mGy and DLP is 870.9 mGy-cm. This CT exam was performed using one or more of the following dose reduction techniques: automated exposure control, adjustment of the mA and/or kV according to patient size, and/or use of iterative reconstruction technique. COMPARISON: No relevant prior studies available. FINDINGS: Vertebrae: Fracture of the anteroinferior corner of C6. Minimally displaced. No significant retropulsion. C6-7 disc osteophyte complex causes mild central canal narrowing. Minimal sclerosis and possibly mild compression deformities of the T3, T4 and T6 vertebral bodies. T6 partially visualized. Discs/spinal canal/neural foramina: Mild multilevel degenerative changes. Other bones/joints: Right mandibular condyle fracture with displacement. Soft tissues: Mild prevertebral soft tissue swelling anterior to C3-4 to C6-7 levels. IMPRESSION: 1. Fracture of the anteroinferior corner of C6. Minimally displaced. No significant retropulsion. C6-7 disc osteophyte complex causes mild central canal narrowing. Correlate clinically and consider MRI. 2. Minimal sclerosis and possibly mild compression deformities of the T3, T4 and T6 vertebral bodies. Age-indeterminate. 3. Mild prevertebral soft tissue swelling anterior to C3-4 to C6-7 levels. 4. Right mandibular condyle fracture with displacement. See facial CT. [employer] 06/27/18 03:04 Call Doctor Regarding Above results, called Dr. ANGULO on 06/27 03:04 (-05:00)
== END 2018-06-27 05:30 | disposition other institution (70) ==
LOC: EC 00:13
DX: S12.500A Unspecified displaced fracture of sixth cervical vertebra, initial encounter for closed fracture (principal); S02.611A Fracture of condylar process of right mandible, initial encounter for closed fracture; Z87.828 Personal history of other (healed) physical injury and trauma; W18.39XA Other fall on same level, initial encounter
CPT/HCPCS: 36415; 70450; 70486; 72125; 80053; 83605; 84484; 85025; 85610; 85730; 86850; 86900; 86901; 96374; 99285

== ENCOUNTER 2018-07-11 16:14 | Inpatient (IN) | payer MEDICARE, OTHER ==
[2018-07-11] MEDS ORDERED: MORPHINE SULFATE 4 MG/ML SYRINGE IVP STA ×2 (16:58→19:18)
[2018-07-11] MEDS ORDERED: SODIUM CHLORIDE 0.9% 1,000 ML IV ONE (16:58)
[2018-07-11 17:06] LABS: Basophils % (A) 1 %; Eosinophils # (A) 0.2 k/uL (0-0.7); Eosinophils % (A) 2 %; HCT 31.8 % (34.0-46.0); HGB 10.3 gm/dL (11.4-16.0); Lymphocytes # (A) 1.7 k/uL (1.0-4.8); Lymphocytes % (A) 20 %; MCHC 32.5 g/dL (31.0-37.0); MCV 89.3 fL (80.0-100.0); Mean Platelet Volume 6.9; Monocytes # (A) 0.6 k/uL (0-1.0); Monocytes % (A) 7 %; Neutrophils # (A) 5.9 k/uL (1.3-7.7); Neutrophils % (A) 69 %; Platelet Count 164 k/uL (150-450); RBC 3.56 m/uL (3.80-5.40); RDW 15.2 % (11.5-15.5); WBC 8.6 k/uL (3.8-10.6)
[2018-07-11 17:10] LABS: Appearance,Urine Clear (Clear); Bacteria,Urine Many /hpf; Bilirubin,Urine Negative (Negative); Blood,Urine Negative (Negative); Color,Urine Light Yellow; Glucose,Urine (UA) Negative (Negative); Ketones,Urine Negative (Negative); Leukocyte Esterase,Urine Small (Negative); Mucus,Urine Rare /hpf; Nitrite,Urine Positive (Negative); PH, Urine 6.5 (5.0-8.0); Protein,Urine Negative (Negative); RBC,Urine 1 /hpf (0-5); Specific Gravity,Urine 1.005 (1.001-1.035); Urobilinogen,Urine <2.0 mg/dL (<2.0); WBC,Urine 11 /hpf (0-5)
[2018-07-11 17:14] LABS: INR 0.9 (<1.2); Prothrombin Time 9.7 sec (9.0-12.0)
[2018-07-11] MEDS: SODIUM CHLORIDE 0.9% 1,000 ML IV SCH (17:15)
[2018-07-11 17:16] LABS: Albumin 3.8 g/dL (3.5-5.0); Calcium 9.6 mg/dL (8.4-10.2); Potassium 4.4 mmol/L (3.5-5.1); Total Bilirubin 0.6 mg/dL (0.2-1.3); Total Protein 6.8 g/dL (6.3-8.2)
--- NOTE | 2018-07-11 17:35 | ED ---
Fall HPI <Tomy Christianson - Last Filed: 07/11/18 19:58> - General Source: EMS, RN notes reviewed, old records reviewed Mode of arrival: EMS <Trixie Chou - Last Filed: 07/11/18 20:19> - General Chief Complaint: Fall Stated Complaint: Hip fracture Time Seen by Provider: 07/11/18 16:26 - History of Present Illness Initial Comments: 82-year-old female with frequent falls. Recent C6 and mandible fracture early June presents emergency room with right hip pain after a fall. She is currently residing at [facility]. She reports that on Monday she fell from her wheelchair onto her knees. She states since that time she's been having right leg and hip and thigh pain. Patient's has bruising around her knees. She is not on any blood thinners. Patient reports that she had a right hip replacement many years ago by Dr. Diehl. (Trixie Chou) - Related Data Home Medications Medication Instructions Recorded Confirmed Levothyroxine Sodium [Synthroid] 25 mcg PO HS 05/05/15 07/11/18 levETIRAcetam [Keppra] 500 mg PO BID@0800,2000 05/05/15 07/11/18 HYDROcodone/APAP 5-325MG [[place] 1 tab PO Q4H PRN 08/15/17 07/11/18 5-325] Acetaminophen Tab [Tylenol] 650 mg PO Q4H PRN 07/11/18 07/11/18 Docusate [Colace] 100 mg PO BID 07/11/18 07/11/18 Losartan [Cozaar] 25 mg PO DAILY 07/11/18 07/11/18 Magnesium Hydroxide [Milk of 2,400 mg PO Q72H PRN 07/11/18 07/11/18 Magnesia] PARoxetine [Paxil] 20 mg PO HS 07/11/18 07/11/18 Sennosides-Docusate Sodium 1 tab PO DAILY 07/11/18 07/11/18 [Senokot-S] buPROPion XL [Wellbutrin Xl] 150 mg PO DAILY 07/11/18 07/11/18 busPIRone HCl [Buspar] 5 mg PO TID@0800,1200,1800 07/11/18 07/11/18 Allergies Allergy/AdvReac Type Severity Reaction Status Date / Time Tetanus Vaccines and Toxoid AdvReac Unknown Verified 07/11/18 16:53 Review of Systems ROS Other: All systems not noted in ROS Statement are negative. <Tomy Christianson - Last Filed: 07/11/18 19:58> ROS Other: All systems not noted in ROS Statement are negative. <Trixie Chou - Last Filed: 07/11/18 20:19> ROS Statement: Those systems with pertinent positive or pertinent negative responses have been documented in the HPI. Past Medical History Past Medical History: COPD, Hyperlipidemia, Hypertension, Thyroid Disorder Additional Past Medical History / Comment(s): 05/05/15 R hip pain following fall. Pt states she lost balance and fell. She is being admitted with fracture neck R femur. Other HX: closed head injuries with falls and once with brain bleed following fall- on keppra prophlactically, odontoid fx 2013, L hip fx after fall with surgey, hypothyroidism, UTI. History of Any Multi-Drug Resistant Organisms: None Reported Past Surgical History: Adenoidectomy, Appendectomy, Cholecystectomy, Hysterectomy, Joint Replacement, Orthopedic Surgery, Tonsillectomy Additional Past Surgical History / Comment(s): partial left hip replacement Past Anesthesia/Blood Transfusion Reactions: No Reported Reaction Additional Past Anesthesia/Blood Transfusion Reaction / Comment(s): Pt has received blood without reaction. Past Psychological History: Depression Smoking Status: Current every day smoker Past Alcohol Use History: None Reported Past Drug Use History: None Reported - Past Family History Father Family Medical History: CVA/TIA Additional Family Medical History / Comment(s): Father had several CVAs and at age 72 yrs. Mother Family Medical History: Cancer Additional Family Medical History / Comment(s): Mother had cancer (do not know type) and at age 72 yrs. <Trixie Chou - Last Filed: 07/11/18 20:19> General Exam <Tomy Christianson - Last Filed: 07/11/18 19:58> Limitations: altered mental status Head exam: Present: atraumatic, normocephalic, normal inspection Eye exam: Present: normal appearance, PERRL, EOMI, other (Patient has inferior orbital and mandibular bruising. This is from her history of mandibular fracture recently. She is moving her jaw without difficulty. Small abrasion over the chin.). Absent: scleral icterus, conjunctival injection, periorbital swelling ENT exam: Present: normal exam, mucous membranes moist Neck exam: Present: normal inspection, other (Patient is currently in c-collar.) . Absent: tenderness, meningismus, lymphadenopathy Respiratory exam: Present: normal lung sounds bilaterally. Absent: respiratory distress, wheezes, rales, rhonchi, stridor Cardiovascular Exam: Present: regular rate, normal rhythm, normal heart sounds. Absent: systolic murmur, diastolic murmur, rubs, gallop, clicks GI/Abdominal exam: Present: soft, normal bowel sounds. Absent: distended, tenderness, guarding, rebound, rigid Extremities exam: Present: full ROM, normal capillary refill. Absent: normal inspection, tenderness, pedal edema, joint swelling, calf tenderness Right Hip exam: Present: normal inspection, tenderness (Patient has tenderness over the lateral aspect of the hip.). Absent: full ROM, swelling, abrasion Upper Leg exam: Present: normal inspection, full ROM, tenderness Knee exam: Present: swelling, ecchymosis. Absent: normal inspection Lower Leg exam: Present: normal inspection, full ROM Ankle exam: Present: normal inspection, full ROM Neurovascular tendon exam: Present: no vascular compromise Gait: observed and normal Back exam: Present: normal inspection Neurological exam: Present: alert, oriented X3, CN II-XII intact Psychiatric exam: Present: normal affect, normal mood Skin exam: Present: warm, dry, intact, normal color. Absent: rash <Trixie Chou - Last Filed: 07/11/18 20:19> - General Exam Comments Initial Comments: 82-year-old female. Alert and oriented 3. Patient does have history of dementia. (Trixie Chou) Vital Signs 07/11/18 07/11/18 07/11/18 16:25 17:03 19:32 Temperature 98.3 F Pulse Rate 75 73 Respiratory 16 18 Rate Blood Pressure 159/75 150/82 O2 Sat by Pulse 97 97 Oximetry Medical Decision Making - Lab Data Result diagrams: 07/11/18 16:29 07/11/18 16:29 <Tomy Christianson - Last Filed: 07/11/18 19:58> - Lab Data Result diagrams: 07/11/18 16:29 01/23/19 16:29 - Radiology Data Radiology results: report reviewed <Trixie Chou - Last Filed: 07/11/18 20:19> - Medical Decision Making Patient is an 82-year-old female who presents emergency Department from [facility]. Patient is currently residing there after sustaining a C6 and a mandibular fracture. She's been having frequent falls. Patient fell from her wheelchair on Monday. She is complaining of right thigh and leg pain since that time. X-rays completed out patiently revealed a proximal femor fracture. Patient was sent here for further evaluation. She did have a hip replacement by Dr. Diehl a few years ago. Lab work was obtained and Patient was given a Martinez catheter. Urinalysis does show slight infection and positive nitrate. Urine culture completed. I will give Patient one by mouth Macrobid at this time. No recent urinary tract infection antibiotics. Patient x-rays do show a proximal femur fracture near the femoral shaft from the hip replacement. Patient case was discussed with Dr. Diehl who agrees to accept the admission. Dr. Diehl requests consult to primary care physician for clearance. She is currently in a c-collar does have bruising around her face from her fall in early June. According to family she is allowed to remove her c-collar as it is a stable fracture and she only uses this c-collar for pain management. There is looking for documentation for patient's previous neurosurgeon and Michelle Carroll for her to have this removed while she is at the [facility]. (Trixie Chou) - Lab Data Lab Results 07/11/18 07/11/18 07/11/18 Range/Units 16:29 16:29 16:29 WBC 8.6 (3.8-10.6) k/uL RBC 3.56 L (3.80-5.40) m/uL Hgb 10.3 L (11.4-16.0) gm/dL Hct 31.8 L (34.0-46.0) % MCV 89.3 (80.0-100.0) fL MCH 29.0 (25.0-35.0) pg MCHC 32.5 (31.0-37.0) g/dL RDW 15.2 (11.5-15.5) % Plt Count 164 (150-450) k/uL Neutrophils % 69 % Lymphocytes % 20 % Monocytes % 7 % Eosinophils % 2 % Basophils % 1 % Neutrophils # 5.9 (1.3-7.7) k/uL Lymphocytes # 1.7 (1.0-4.8) k/uL Monocytes # 0.6 (0-1.0) k/uL Eosinophils # 0.2 (0-0.7) k/uL Basophils # 0.0 (0-0.2) k/uL PT 9.7 (9.0-12.0) sec INR 0.9 (<1.2) APTT 23.0 (22.0-30.0) sec Sodium 137 (137-145) mmol/L Potassium 4.4 (3.5-5.1) mmol/L Chloride 103 (98-107) mmol/L Carbon Dioxide 27 (22-30) mmol/L Anion Gap 7 mmol/L BUN 17 (7-17) mg/dL Creatinine 0.89 (0.52-1.04) mg/dL Est GFR (CKD-EPI)AfAm 69 (>60 ml/min/1.73 sqM) Est GFR (CKD-EPI)NonAf 60 (>60 ml/min/1.73 sqM) Glucose 93 (74-99) mg/dL Calcium 9.6 (8.4-10.2) mg/dL Total Bilirubin 0.6 (0.2-1.3) mg/dL AST 16 (14-36) U/L ALT 20 (9-52) U/L Alkaline Phosphatase 64 (38-126) U/L Total Protein 6.8 (6.3-8.2) g/dL Albumin 3.8 (3.5-5.0) g/dL Urine Color Urine Appearance (Clear) Urine pH (5.0-8.0) Ur Specific Willis (1.001-1.035) Urine Protein (Negative) Urine Glucose (UA) (Negative) Urine Ketones (Negative) Urine Blood (Negative) Urine Nitrite (Negative) Urine Bilirubin (Negative) Urine Urobilinogen (<2.0) mg/dL Ur Leukocyte Esterase (Negative) Urine RBC (0-5) /hpf Urine WBC (0-5) /hpf Urine Bacteria (None) /hpf Urine Mucus (None) /hpf 07/11/18 Range/Units 16:45 WBC (3.8-10.6) k/uL RBC (3.80-5.40) m/uL Hgb (11.4-16.0) gm/dL Hct (34.0-46.0) % MCV (80.0-100.0) fL MCH (25.0-35.0) pg MCHC (31.0-37.0) g/dL RDW (11.5-15.5) % Plt Count (150-450) k/uL Neutrophils % % Lymphocytes % % Monocytes % % Eosinophils % % Basophils % % Neutrophils # (1.3-7.7) k/uL Lymphocytes # (1.0-4.8) k/uL Monocytes # (0-1.0) k/uL Eosinophils # (0-0.7) k/uL Basophils # (0-0.2) k/uL PT (9.0-12.0) sec INR (<1.2) APTT (22.0-30.0) sec Sodium (137-145) mmol/L Potassium (3.5-5.1) mmol/L Chloride (98-107) mmol/L Carbon Dioxide (22-30) mmol/L Anion Gap mmol/L BUN (7-17) mg/dL Creatinine (0.52-1.04) mg/dL Est GFR (CKD-EPI)AfAm (>60 ml/min/1.73 sqM) Est GFR (CKD-EPI)NonAf (>60 ml/min/1.73 sqM) Glucose (74-99) mg/dL Calcium (8.4-10.2) mg/dL Total Bilirubin (0.2-1.3) mg/dL AST (14-36) U/L ALT (9-52) U/L Alkaline Phosphatase (38-126) U/L Total Protein (6.3-8.2) g/dL Albumin (3.5-5.0) g/dL Urine Color Light Yellow Urine Appearance Clear (Clear) Urine pH 6.5 (5.0-8.0) Ur Specific Willis 1.005 (1.001-1.035) Urine Protein Negative (Negative) Urine Glucose (UA) Negative (Negative) Urine Ketones Negative (Negative) Urine Blood Negative (Negative) Urine Nitrite Positive H (Negative) Urine Bilirubin Negative (Negative) Urine Urobilinogen <2.0 (<2.0) mg/dL Ur Leukocyte Esterase Small H (Negative) Urine RBC 1 (0-5) /hpf Urine WBC 11 H (0-5) /hpf Urine Bacteria Many H (None) /hpf Urine Mucus Rare H (None) /hpf - Radiology Data AP pelvis 1 view. Suspected proximal right femoral fracture. Nondisplaced proximal right femoral shaft fracture. No acute process, supine AP chest radiograph. (Trixie Chou) Disposition <Tomy Christianson - Last Filed: 07/11/18 19:58> Is patient prescribed a controlled substance at d/c from ED?: No Time of Disposition: 19:18 <Trixie Chou - Last Filed: 07/11/18 20:19> Clinical Impression: Right femoral fracture, UTI (urinary tract infection) Disposition: ADMITTED IP TO THIS HOSP Condition: Stable Referrals: Thomas Salazar MD [Primary Care Provider] - 1-2 days
--- NOTE | 2018-07-11 18:18 | XR ---
PROCEDURE: XR pelvis AP view - 1V DATE AND TIME: 07/11/2018 5:42 PM CLINICAL INDICATION: PHH; Pain TECHNIQUE: Department protocol COMPARISON: 08/15/2017 FINDINGS: There is a linear lucency through the lateral cortex of the proximal right femoral shaft, s uspicious for acute fracture. There are no other candidates for acute findings. The visualized bilate ral THR components are intact, but they are incompletely visualized on this single radiograph. IMPRESSION: AP pelvis one view: Suspect proximal right femoral fracture.
--- NOTE | 2018-07-11 18:21 | XR ---
PROCEDURE: XR femur RT - 4 views DATE AND TIME: 07/11/2018 5:42 PM CLINICAL INDICATION: PHH; Pain TECHNIQUE: Department protocol COMPARISON: None FINDINGS: Imaging was obtained from the right hip to the right knee. The right THR is intact. Linear lucencies are noted lateral to the intramedullary component with cortical step-off, consistent with nondisplaced fracture involving the proximal right femoral shaft. IMPRESSION: Nondisplaced proximal right femoral shaft fracture.
--- NOTE | 2018-07-11 18:23 | XR ---
EXAMINATION: XR chest 1V DATE AND TIME: 07/11/2018 5:42 PM CLINICAL INDICATION: PHH; Pain TECHNIQUE: AP supine COMPARISON: 08/15/2017 FINDINGS: There is no evidence of acute fracture. No evidence of pneumothorax or pleural effusion. The lungs ap pear clear. Cardiomediastinal silhouette and soft tissues are unremarkable. Note: Supine radiography cannot exclude abnormal gas collections. IMPRESSION: NO ACUTE PROCESS, SUPINE AP CHEST RADIOGRAPH.
[2018-07-11] MEDS ORDERED: MORPHINE SULFATE 4 MG/ML SYRINGE IV PRN (19:19)
[2018-07-11] MEDS ORDERED: ONDANSETRON 4 MG/2 ML VIAL IVP PRN (19:19)
[2018-07-11] MEDS ORDERED: NALOXONE 0.4 MG/ML 1 ML VIAL IV PRN (19:19)
[2018-07-11] MEDS ORDERED: HYDROmorphone 0.5 MG/0.5 ML SYRINGE IVP PRN (19:19)
[2018-07-11] MEDS ORDERED: NITROFURANTOIN MONOHYD/M-CRYST 100 MG CAP PO STA (20:14)
[2018-07-12] MEDS: SODIUM CHLORIDE 0.9% 1,000 ML IV SCH ×3 (03:04→16:21)
[2018-07-12] MEDS: PANTOPRAZOLE 40 MG/10 ML VIAL IV SCH (07:39)
--- NOTE | 2018-07-12 09:06 | P.HPOR ---
History of Present Illness H&P Date: 07/12/18 Chief Complaint: Periprosthetic fracture right hip This is an 82-year-old female admitted through the emergency department after falling and complaining of right hip pain. The patient is a poor historian but I was able to speak with her daughter on the phone this morning. She apparently had a severe fall about 8 years ago where she fell one story over a railing and sustained a closed head injury. Since that time she has had multiple falls. Most recently she fell outside her bathroom at [facility], fracturing her jaw and her dentures. The daughter states that she did not recall her complaining of right hip pain around the time of that fall. However , she fell again this past Monday evening and began complaining of right hip pain on Monday. She is brought to the emergency department last evening and admitted to our service. Past Medical History Past Medical History: COPD, Hyperlipidemia, Hypertension, Thyroid Disorder Additional Past Medical History / Comment(s): 05/05/15 R hip pain following fall. Pt states she lost balance and fell. She is being admitted with fracture neck R femur. Other HX: closed head injuries with falls and once with brain bleed following fall- on keppra prophlactically, odontoid fx 2013, L hip fx after fall with surgey, hypothyroidism, UTI. History of Any Multi-Drug Resistant Organisms: None Reported Past Surgical History: Adenoidectomy, Appendectomy, Cholecystectomy, Hysterectomy, Joint Replacement, Orthopedic Surgery, Tonsillectomy Additional Past Surgical History / Comment(s): partial left hip replacement Past Anesthesia/Blood Transfusion Reactions: No Reported Reaction Additional Past Anesthesia/Blood Transfusion Reaction / Comment(s): Pt has received blood without reaction. Past Psychological History: Depression Additional Psychological History / Comment(s): Pt resides with her daughter, Deb. She uses a walker to ambulate. She is independent with her ADLs. 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 She does not drive-her gutierrez takes her to [employer]. Smoking Status: Former smoker Past Alcohol Use History: None Reported Additional Past Alcohol Use History / Comment(s): Pt smokes about 1/2 ppd. She started smoking about age 59 yrs. Past Drug Use History: None Reported - Past Family History Father Family Medical History: CVA/TIA Additional Family Medical History / Comment(s): Father had several CVAs and at age 72 yrs. Mother Family Medical History: Cancer Additional Family Medical History / Comment(s): Mother had cancer (do not know type) and at age 72 yrs. Medications and Allergies Home Medications Medication Instructions Recorded Confirmed Type Levothyroxine Sodium [Synthroid] 25 mcg PO HS 05/05/15 07/11/18 History levETIRAcetam [Keppra] 500 mg PO BID@0800,2000 05/05/15 07/11/18 History HYDROcodone/APAP 5-325MG [[place] 1 tab PO Q4H PRN 08/15/17 07/11/18 History 5-325] Acetaminophen Tab [Tylenol] 650 mg PO Q4H PRN 07/11/18 07/11/18 History Docusate [Colace] 100 mg PO BID 07/11/18 07/11/18 History Losartan [Cozaar] 25 mg PO DAILY 07/11/18 07/11/18 History Magnesium Hydroxide [Milk of 2,400 mg PO Q72H PRN 07/11/18 07/11/18 History Magnesia] PARoxetine [Paxil] 20 mg PO HS 07/11/18 07/11/18 History Sennosides-Docusate Sodium 1 tab PO DAILY 07/11/18 07/11/18 History [Senokot-S] buPROPion XL [Wellbutrin Xl] 150 mg PO DAILY 07/11/18 07/11/18 History busPIRone HCl [Buspar] 5 mg PO TID@0800,1200,1800 07/11/18 07/11/18 History Allergies Allergy/AdvReac Type Severity Reaction Status Date / Time Tetanus Vaccines and Toxoid AdvReac Unknown Verified 07/11/18 16:53 Physical Examination This is a pleasant 82-year-old female in no acute distress. She is alert and oriented to person and place. She is a poor historian and cannot recall the details around her falls. Exam of the head and neck reveal significant bruising to her face. She has limited motion to her cervical spine. Exam of the upper extremities is unremarkable. She has fairly good elbow, wrist and finger motion bilaterally. Neurovascular status to the upper extremities is intact. Exam of the lower extremities reveals no obvious deformity. She is able to lift each leg off the bed independently. She has no pain with leg lift on the right. There is mild pain with logroll of the right hip. There is pain with palpation about the greater trochanter on the right. She has full foot and ankle motion bilaterally. Neurovascular status to the lower extremities is intact. Results X-rays of the pelvis and right hip reveal bilateral total hip arthroplasty in good position and alignment. There is a very subtle, nondisplaced fracture about the base of the greater trochanter. There is evidence of early bone healing noted. No evidence of loosening of the implant. No other fractures identified. - Labs Labs: Abnormal Lab Results - Last 24 Hours (Table) 07/11/18 07/11/18 Range/Units 16:29 16:45 RBC 3.56 L (3.80-5.40) m/uL Hgb 10.3 L (11.4-16.0) gm/dL Hct 31.8 L (34.0-46.0) % Urine Nitrite Positive H (Negative) Ur Leukocyte Esterase Small H (Negative) Urine WBC 11 H (0-5) /hpf Urine Bacteria Many H (None) /hpf Urine Mucus Rare H (None) /hpf H & H 07/11/18 Range/Units 16:29 Hgb 10.3 L (11.4-16.0) gm/dL Hct 31.8 L (34.0-46.0) % Coagulation 07/11/18 Range/Units 16:29 INR 0.9 (<1.2) Result Diagrams: 07/11/18 16:29 07/11/18 16:29 Assessment and Plan (1) Multiple falls Current Visit: Yes Status: Acute Code(s): R29.6 - REPEATED FALLS SNOMED Code(s): 065699308 (2) Periprosthetic fracture around internal prosthetic right hip joint Current Visit: Yes Status: Acute Code(s): M97.01XA - PERIPROSTH FRACTURE AROUND INTERNAL PROSTH R HIP JT, INIT SNOMED Code(s): 332551873 Plan: The clinical and x-ray findings are discussed with the patient and her daughter. The case is reviewed with Dr. Diehl. Conservative versus surgical treatments are discussed. It is recommended we try conservative measures for now. She may be weightbearing as tolerated with a walker. We will follow closely with serial x-rays. If we know any displacement we may recommend surgical fixation at that time. We will have physical therapy work with her today and May discharged back to her extended care facility when cleared medically.
[2018-07-12] MEDS: LOSARTAN 25 MG TAB PO SCH (09:28)
[2018-07-12] MEDS: DOCUSATE 100 MG CAP PO SCH ×2 (09:28→21:54)
[2018-07-12] MEDS: SENNOSIDES-DOCUSATE SODIUM 1 EACH TAB PO SCH (09:28)
[2018-07-12] MEDS: buPROPion XL 150 MG TAB.ER.24H PO SCH (09:28)
[2018-07-12] MEDS: KETOROLAC 30 MG/ML 1 ML VIAL IVP PRN (09:52)
[2018-07-12] MEDS ORDERED: MORPHINE SULFATE 4 MG/ML SYRINGE IVP PRN (10:20)
[2018-07-12] MEDS: HYDROcodone/APAP 5-325MG 1 EACH TAB PO PRN ×3 (10:24→21:54)
[2018-07-12] MEDS: busPIRone HCl 5 MG TAB PO SCH ×2 (12:21→17:42)
[2018-07-12] MEDS ORDERED: POLYETHYLENE GLYCOL 3350 17 GM POWD.PACK PO PRN (13:21)
--- NOTE | 2018-07-12 13:22 | P.CONS ---
History of Present Illness - Reason for Consult Fall - History of Present Illness 82-year-old pleasant female is admitted after a fall with concerns of fracture although there is no fracture evident the right knee or hip area patient is comparing of severe right hip pain is unable to move because of the severe pain. Patient was admitted to orthopedic surgery service. Patient the appear to have mechanical fall denied any loss of consciousness patient is a facial bruise. Patient had a traumatic head injury in the past since then patient has been falling was a and subacute rehabilitation multiple times in the past. Patient was on Keppra in the past which was subsequently discontinued after extensive evaluation by neurology at the other facility. Although it was restarted back and family is requesting to stop the Patient never had any seizures patient was on the Keppra for 8 years after which it was discontinued as she was seizure free all this time. Patient is comparing of severe pain initially discontinue and all the opiates. Patient also has issues with constipation because of which I discontinued opiates but pain is not well controlled with Toradol Tylenol. We'll still try to avoid opiates but the if she is still in pain patient be given [place] followed by morphine if needed testing her age patient is expected to have constipation and hallucinations and delusions, delirium from my opiates. Review of Systems REVIEW OF SYSTEMS: CONSTITUTIONAL: No fever, no malaise, no fatigue. HEENT: No recent visual problems or hearing problems. Denied any sore throat. CARDIOVASCULAR: No chest pain, orthopnea, PND, no palpitations, no syncope. PULMONARY: No shortness of breath, no cough, no hemoptysis. GASTROINTESTINAL: No diarrhea, no nausea, no vomiting, no abdominal pain. NEUROLOGICAL: No headaches, no weakness, no numbness. HEMATOLOGICAL: Denies any bleeding or petechiae. GENITOURINARY: Denies any burning micturition, frequency, or urgency. MUSCULOSKELETAL/RHEUMATOLOGICAL: Is having severe pain with minimal movement in the right hip area ENDOCRINE: Denies any polyuria or polydipsia. The rest of the 14-point review of systems is negative. Past Medical History Past Medical History: COPD, Hyperlipidemia, Hypertension, Thyroid Disorder Additional Past Medical History / Comment(s): 05/05/15 R hip pain following fall. Pt states she lost balance and fell. She is being admitted with fracture neck R femur. Other HX: closed head injuries with falls and once with brain bleed following fall- on keppra prophlactically, odontoid fx 2013, L hip fx after fall with surgey, hypothyroidism, UTI. History of Any Multi-Drug Resistant Organisms: None Reported Past Surgical History: Adenoidectomy, Appendectomy, Cholecystectomy, Hysterectomy, Joint Replacement, Orthopedic Surgery, Tonsillectomy Additional Past Surgical History / Comment(s): partial left hip replacement Past Anesthesia/Blood Transfusion Reactions: No Reported Reaction Additional Past Anesthesia/Blood Transfusion Reaction / Comm: Pt has received blood without reaction. Past Psychological History: Depression Additional Psychological History / Comment(s): Pt resides with her daughter, Deb. She uses a walker to ambulate. She is independent with her ADLs. 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 She does not drive-her gutierrez takes her to [facility] [employer]. Smoking Status: Former smoker Past Alcohol Use History: None Reported Additional Past Alcohol Use History / Comment(s): Pt smokes about 1/2 ppd. She started smoking about age 59 yrs. Past Drug Use History: None Reported - Past Family History Father Family Medical History: CVA/TIA Additional Family Medical History / Comment(s): Father had several CVAs and at age 72 yrs. Mother Family Medical History: Cancer Additional Family Medical History / Comment(s): Mother had cancer (do not know type) and at age 72 yrs. Medications and Allergies Home Medications Medication Instructions Recorded Confirmed Type Levothyroxine Sodium [Synthroid] 25 mcg PO HS 05/05/15 07/11/18 History levETIRAcetam [Keppra] 500 mg PO BID@0800,199905/05/15 07/11/18 History HYDROcodone/APAP 5-325MG [[place] 1 tab PO Q4H PRN 08/15/17 07/11/18 History 5-325] Acetaminophen Tab [Tylenol] 650 mg PO Q4H PRN 07/11/18 07/11/18 History Docusate [Colace] 100 mg PO BID 07/11/18 07/11/18 History Losartan [Cozaar] 25 mg PO DAILY 07/11/18 07/11/18 History Magnesium Hydroxide [Milk of 2,400 mg PO Q72H PRN 07/11/18 07/11/18 History Magnesia] PARoxetine [Paxil] 20 mg PO HS 07/11/18 07/11/18 History Sennosides-Docusate Sodium 1 tab PO DAILY 07/11/18 07/11/18 History [Senokot-S] buPROPion XL [Wellbutrin Xl] 150 mg PO DAILY 07/11/18 07/11/18 History busPIRone HCl [Buspar] 5 mg PO TID@0800,1200,1800 07/11/18 07/11/18 History Allergies Allergy/AdvReac Type Severity Reaction Status Date / Time Tetanus Vaccines and Toxoid AdvReac Unknown Verified 07/11/18 16:53 Physical Exam Vitals: Vital Signs Temp Pulse Pulse Resp BP BP Pulse Ox 07/12/18 07:43 98.0 F 71 16 160/66 95 07/11/18 23:00 98.5 F 64 16 162/67 94 L 07/11/18 20:50 98.0 F 72 18 136/72 98 07/11/18 19:32 73 18 150/82 97 07/11/18 17:03 98.3 F 07/11/18 16:25 75 16 159/75 97 Intake and Output 07/11/18 07/12/18 07/12/18 22:59 06:59 14:59 Intake Total 1000 Output Total 700 1300 Balance -700 1000 -1300 Intake: Intake, IV Titration 1000 Amount Sodium Chloride 0.9% 1, 1000 000 ml @ 100 mls/hr IV . Q10H [facility] Rx#:[id number] Output: Urine 700 1300 Uretheral (Martinez) 1300 Other: Voiding Method Indwelling Catheter Indwelling Catheter Indwelling Catheter Weight 58.967 kg PHYSICAL EXAMINATION: GENERAL: The patient is alert and oriented x2-3, not in any acute distress. Thin built female HEENT: Pupils are round and equally reacting to light. EOMI. No scleral icterus. No conjunctival pallor. Normocephalic, atraumatic. No pharyngeal erythema. No thyromegaly. CARDIOVASCULAR: S1 and S2 present. No murmurs, rubs, or gallops. PULMONARY: Chest is clear to auscultation, no wheezing or crackles. ABDOMEN: Soft, nontender, nondistended, normoactive bowel sounds. No palpable organomegaly. MUSCULOSKELETAL: Patient has significant pain unable to move her right hip area no significant swelling was appreciated EXTREMITIES: No cyanosis, clubbing, or pedal edema. NEUROLOGICAL: Gross neurological examination did not reveal any focal deficits. SKIN: No rashes. Results CBC & Chem 7: 07/11/18 16:29 07/11/18 16:29 Labs: Abnormal Lab Results - Last 24 Hours (Table) 07/11/18 07/11/18 Range/Units 16:29 16:45 RBC 3.56 L (3.80-5.40) m/uL Hgb 10.3 L (11.4-16.0) gm/dL Hct 31.8 L (34.0-46.0) % Urine Nitrite Positive H (Negative) Ur Leukocyte Esterase Small H (Negative) Urine WBC 11 H (0-5) /hpf Urine Bacteria Many H (None) /hpf Urine Mucus Rare H (None) /hpf Microbiology - Last 24 Hours (Table) 07/12/18 02:20 Urine Culture - Preliminary Urine,Catheterized Assessment and Plan Plan: right hip pain: Probably due to the prosthetic mild fracture in the right hip area. This is being managed by orthopedic surgery: Pain management as mentioned above. Patient was also started on bowel regimen -Multiple falls secondary to deconditioning and since her traumatic brain injury no syncopal episodes. Prophylactic antiseizure medications are being discontinued as discussed above -COPD without any acute exacerbation, patient can use to smoke -Hyperlipidemia -Hypertension and patient was resumed on home medications blood pressure is bit elevated because of pain -Hypothyroidism. Patient will require pharmacologic GI as well as DVT prophylaxis
[2018-07-12] MEDS ORDERED: levETIRAcetam 500 MG TAB PO SCH (20:00)
[2018-07-12] MEDS: LEVOTHYROXINE 25 MCG TAB PO SCH (21:54)
[2018-07-12] MEDS: PARoxetine 20 MG TAB PO SCH (21:54)
[2018-07-12] MEDS: HEPARIN SODIUM,PORCINE 5,000 UNIT/ML 1 ML VIAL SQ SCH (21:54)
--- NOTE | 2018-07-13 08:11 | P.PN ---
Subjective Progress Note Date: 07/13/18 Principal diagnosis: Periprosthetic fracture right hip. History of bilateral total hip arthroplasty. Dementia. This is an 82-year-old female who we're following regarding her nondisplaced periprosthetic trochanteric fracture of the right hip. According to physical therapy notes, the patient did fairly well getting up yesterday. She did have some pain but was able to ambulate with minimal assistance. In speaking with the patient today, she is confused but states that she is afraid that " something bad is going to happen to her ". She also asked if she could speak with the police. When I asked her what she meant by that, she stated that she "just couldn't take the pain anymore". I asked if she thought that she might her harm herself or if she thought that someone else's going to harm her. She just kept repeating that she "can't take the pain anymore"and that she is "been in pain for to long". Objective - Vital Signs Vital signs: Vital Signs Temp 98.6 F 07/12/18 23:00 Pulse 66 07/12/18 23:00 Resp 16 07/12/18 23:00 BP 136/57 07/12/18 23:00 Pulse Ox 95 07/12/18 23:00 Intake & Output 07/12/18 07/13/18 07/13/18 18:59 06:59 18:59 Intake Total 1000 Output Total 1300 Balance -300 Intake: Intake, IV Titration 800 Amount Sodium Chloride 0.9% 1, 800 000 ml @ 100 mls/hr IV . Q10H [facility] Rx#:[id number] Other 200 Output: Urine 1300 Uretheral (Martinez) 1300 Other: Voiding Method Indwelling Catheter Incontinent # Voids 3 3 - Exam This is an 82-year-old female in mild emotional distress. She is alert and states that she is aware that she is in the hospital. As stated above she is making some concerning statements about potential harm to herself. She is more painful on exam today. She will lift her leg off the bed but has pain. Pain on palpation about the lateral right hip. She has full foot and ankle motion without difficulty. Neurovascular status to the lower extremity is intact. - Labs CBC & Chem 7: 07/11/18 16:29 01/23/19 16:29 Labs: Microbiology - Last 24 Hours (Table) 07/12/18 02:20 Urine Culture - Preliminary Urine,Catheterized Assessment and Plan (1) Multiple falls Current Visit: Yes Status: Acute Code(s): R29.6 - REPEATED FALLS SNOMED Code(s): 193570884 (2) Periprosthetic fracture around internal prosthetic right hip joint Current Visit: Yes Status: Acute Code(s): M97.01XA - PERIPROSTH FRACTURE AROUND INTERNAL PROSTH R HIP JT, INIT SNOMED Code(s): 377395655 Plan: The clinical and x-ray findings are discussed with the patient and her daughter yesterday. The case is reviewed with Dr. Diehl. Conservative versus surgical treatments are discussed. It is recommended we try conservative measures for now. She may be weightbearing as tolerated with a walker. We will follow closely with serial x-rays. If we know any displacement we may recommend surgical fixation at that time. We will have physical therapy work with her today and May discharged back to her extended care facility when cleared medically. I do recommend the patient be evaluated by psychiatry. It may just be her confusion but she repeatedly stated that she was worried about harming herself. She currently has a sitter with her. I will discuss the case with internal medicine. She may be transferred to back to her extended care facility when cleared medically.
[2018-07-13] MEDS: SENNOSIDES-DOCUSATE SODIUM 1 EACH TAB PO SCH (08:20)
[2018-07-13] MEDS: HYDROcodone/APAP 5-325MG 1 EACH TAB PO PRN ×2 (08:20→20:15)
[2018-07-13] MEDS: DOCUSATE 100 MG CAP PO SCH ×2 (08:20→20:15)
[2018-07-13] MEDS: PANTOPRAZOLE 40 MG/10 ML VIAL IV SCH (08:21)
[2018-07-13] MEDS: busPIRone HCl 5 MG TAB PO SCH ×3 (08:21→17:04)
[2018-07-13] MEDS: buPROPion XL 150 MG TAB.ER.24H PO SCH (08:21)
[2018-07-13] MEDS: LOSARTAN 25 MG TAB PO SCH (08:21)
[2018-07-13] MEDS: HEPARIN SODIUM,PORCINE 5,000 UNIT/ML 1 ML VIAL SQ SCH ×2 (08:21→20:15)
[2018-07-13] MEDS: MORPHINE SULFATE 4 MG/ML SYRINGE IVP PRN ×2 (11:54→18:27)
[2018-07-13] MEDS: SODIUM CHLORIDE 0.9% 1,000 ML IV SCH ×2 (11:59→15:21)
--- NOTE | 2018-07-13 13:25 | P.PN ---
Subjective 82-year-old female admitted secondary to right knee fraction the periprosthetic area. Patient is still complaining of severe pain. Patient is definitely constipated because of her uncontrolled pain we'll increase the dose of morphine. Patient is also on Toradol. Patient has moderate to severe dementia probably vascular dementia her functionality is extremely poor and recent days and is expected to get worse with this fracture. Patient son was at bedside who believes that the patient is more appropriate for hospice. Considering her poor functionality and her dementia I believe comfort care or hospice is an appropriate option. Active Medications Acetaminophen (Tylenol Tab) 1,000 mg PO Q6HR PRN PRN Reason: Fever and/ or mild Pain Hydrocodone Bitart/Acetaminophen ([place] 5-325) 1 each PO Q4H PRN PRN Reason: Moderate Pain Last Admin: 07/13/18 08:20 Dose: 1 each Alvimopan (Entereg) 12 mg PO BID [facility] Stop: 07/20/18 09:01 Bupropion HCl (Wellbutrin Xl) 150 mg PO DAILY [facility] Last Admin: 07/13/18 08:21 Dose: 150 mg Buspirone HCl (Buspar) 5 mg PO TID@0800,1200,1800 [facility] Last Admin: 07/13/18 11:54 Dose: 5 mg Docusate Sodium (Colace) 100 mg PO BID [facility] Last Admin: 07/13/18 08:20 Dose: 100 mg Heparin Sodium (Porcine) (Heparin) 5,000 unit SQ Q12HR [facility] Last Admin: 07/13/18 08:21 Dose: 5,000 unit Sodium Chloride (Saline 0.9%) 1,000 mls @ 100 mls/hr IV .Q10H [facility] Last Admin: 07/13/18 11:59 Dose: Not Given Ketorolac Tromethamine (Toradol) 15 mg IVP Q6HR PRN PRN Reason: Pain Stop: 07/17/18 08:42 Last Admin: 07/12/18 09:52 Dose: 15 mg Levothyroxine Sodium (Synthroid) 25 mcg PO HS [facility] Last Admin: 07/12/18 21:54 Dose: 25 mcg Losartan Potassium (Cozaar) 25 mg PO DAILY [facility] Last Admin: 07/13/18 08:21 Dose: 25 mg Morphine Sulfate (Morphine Sulfate (Inj)) 4 mg IVP Q2HR PRN PRN Reason: Pain Last Admin: 07/13/18 11:54 Dose: 4 mg Naloxone HCl (Narcan) 0.2 mg IV Q2M PRN PRN Reason: Opioid Reversal Ondansetron HCl (Zofran) 4 mg IVP Q8HR PRN PRN Reason: Nausea And Vomiting Last Admin: 07/12/18 22:26 Dose: 4 mg Pantoprazole Sodium (Protonix) 40 mg IV DAILY [facility] Last Admin: 07/13/18 08:21 Dose: 40 mg Paroxetine HCl (Paxil) 20 mg PO HS [facility] Last Admin: 07/12/18 21:54 Dose: 20 mg Polyethylene Glycol (Miralax) 17 gm PO DAILY PRN PRN Reason: Constipation Senna/Docusate Sodium (Senokot-S) 1 each PO DAILY [facility] Last Admin: 07/13/18 08:20 Dose: 1 each Objective - Vital Signs Vital signs: Vital Signs Temp 98.0 F 07/13/18 08:28 Pulse 75 07/13/18 08:28 Resp 16 07/13/18 08:28 BP 128/62 07/13/18 08:28 Pulse Ox 97 07/13/18 08:28 Intake & Output 07/12/18 07/13/18 07/13/18 18:59 06:59 18:59 Intake Total 1000 Output Total 1300 Balance -300 Intake: Intake, IV Titration 800 Amount Sodium Chloride 0.9% 1, 800 000 ml @ 100 mls/hr IV . Q10H [facility] Rx#:[id number] Other 200 Output: Urine 1300 Uretheral (Martinez) 1300 Other: Voiding Method Indwelling Catheter Incontinent # Voids 3 3 - Exam PHYSICAL EXAMINATION: GENERAL: The patient is alert and oriented x2, not in any acute distress. Thin built female HEENT: Pupils are round and equally reacting to light. EOMI. No scleral icterus. No conjunctival pallor. Normocephalic, atraumatic. No pharyngeal erythema. No thyromegaly. CARDIOVASCULAR: S1 and S2 present. No murmurs, rubs, or gallops. PULMONARY: Chest is clear to auscultation, no wheezing or crackles. ABDOMEN: Soft, nontender, nondistended, normoactive bowel sounds. No palpable organomegaly. MUSCULOSKELETAL: Patient has significant pain unable to move her right hip area no significant swelling was appreciated EXTREMITIES: No cyanosis, clubbing, or pedal edema. NEUROLOGICAL: Gross neurological examination did not reveal any focal deficits. SKIN: No rashes. - Labs CBC & Chem 7: 07/11/18 16:29 07/11/18 16:29 Labs: Microbiology - Last 24 Hours (Table) 07/12/18 02:20 Urine Culture - Preliminary Urine,Catheterized Gram Neg Bacilli Assessment and Plan Plan: right hip pain: Probably due to the prosthetic mild fracture in the right hip area. This is being managed by orthopedic surgery: Pain management as mentioned above. Patient did not move her bowels sluggish bowel sounds, will add the lactulose to her bowel regimen -Moderate to severe dementia probably vascular dementia: Discussion regarding hospice as mentioned above -Multiple falls secondary to deconditioning and since her traumatic brain injury no syncopal episodes. Prophylactic antiseizure medications are being discontinued -COPD without any acute exacerbation. -Hyperlipidemia -Hypertension -Hypothyroidism.
--- NOTE | 2018-07-13 16:19 | XR ---
EXAMINATION TYPE: XR Hip RT and AP Pelvis DATE OF EXAM: 07/13/2018 COMPARISON: Prior exam 08/15/2017, 07/11/2017 HISTORY: Trauma and pain TECHNIQUE: A single AP view of the pelvis is obtained. Two views of the right hip are obtained. FINDINGS: There is again noted a fracture at the level of the proximal femur with minimal displaceme nt. No dislocation of patient's right hip prosthesis. Patient is rotated. Possible old traumatic pineda ges to the pubic rami. Bone mineralization is reduced. Inferior vena cava filter is likely present. D egenerative disc changes in the visualized lumbar spine. IMPRESSION: Proximal right femoral fracture extends to the level of the femoral component of patient' s hip arthroplasty. Minimal displacement.
[2018-07-13] MEDS ORDERED: TRIMETHOBENZAMIDE 100 MG/ML 2 ML VIAL IM PRN (19:45)
[2018-07-13] MEDS: ALVIMOPAN 12 MG CAPSULE PO SCH (20:15)
[2018-07-13] MEDS: LEVOTHYROXINE 25 MCG TAB PO SCH (20:15)
[2018-07-13] MEDS: PARoxetine 20 MG TAB PO SCH (20:15)
[2018-07-14] MEDS: SODIUM CHLORIDE 0.9% 1,000 ML IV SCH ×2 (05:22→23:42)
[2018-07-14] MEDS: KETOROLAC 30 MG/ML 1 ML VIAL IVP PRN (05:23)
[2018-07-14] MEDS: HEPARIN SODIUM,PORCINE 5,000 UNIT/ML 1 ML VIAL SQ SCH ×2 (10:19→23:42)
[2018-07-14] MEDS: busPIRone HCl 5 MG TAB PO SCH ×2 (12:14→23:42)
[2018-07-14] MEDS: PANTOPRAZOLE 40 MG/10 ML VIAL IV SCH (12:14)
[2018-07-14] MEDS: buPROPion XL 150 MG TAB.ER.24H PO SCH (12:15)
[2018-07-14] MEDS: DOCUSATE 100 MG CAP PO SCH ×2 (12:15→23:42)
[2018-07-14] MEDS: ALVIMOPAN 12 MG CAPSULE PO SCH ×2 (12:15→23:42)
[2018-07-14] MEDS: SENNOSIDES-DOCUSATE SODIUM 1 EACH TAB PO SCH (12:15)
[2018-07-14] MEDS: LOSARTAN 25 MG TAB PO SCH (12:15)
--- NOTE | 2018-07-14 21:35 | P.PN ---
Subjective Progress Note Date: 07/14/18 Principal diagnosis: periprosthetic trochanteric fracture of the right hip This is an 82-year-old female seen at bedside this morning. We are following her for a periprosthetic trochanteric fracture of the right hip. She has pain at the fracture site at the right hip as expected. She has no new complaints. She denies numbness or tingling. Objective - Vital Signs Vital signs: Vital Signs Temp 98.6 F 07/14/18 07:27 Pulse 76 07/14/18 07:27 Resp 16 07/14/18 07:27 BP 154/65 07/14/18 07:27 Pulse Ox 98 07/14/18 07:27 Intake & Output 07/14/18 07/14/18 07/15/18 06:59 18:59 06:59 Other: Voiding Method Incontinent Bedside Commode Incontinent # Voids 1 # Bowel Movements 1 - Exam Inspection od right lower extremitu shows a well healed surgical wound. There is resolving echymosis. Neurovascular status is intact throughout the lower extremity with motor and sensation fully intact. Calf is soft and nontender. 2 + dorsalis pedis pulse and less than 2 second cap refill is present. - Constitutional General appearance: Present: no acute distress - Labs CBC & Chem 7: 07/11/18 16:29 07/11/18 16:29 Labs: Microbiology - Last 24 Hours (Table) 07/12/18 02:20 Urine Culture - Final Urine,Catheterized Escherichia coli Assessment and Plan (1) Major neurocognitive disorder due to vascular disease, without behavioral disturbance, severe Current Visit: Yes Status: Acute Code(s): F01.50 - VASCULAR DEMENTIA WITHOUT BEHAVIORAL DISTURBANCE SNOMED Code(s): 503115358 (2) Multiple falls Current Visit: Yes Status: Acute Code(s): R29.6 - REPEATED FALLS SNOMED Code(s): 232245748 (3) Periprosthetic fracture around internal prosthetic right hip joint Narrative/Plan: Repeat xrays have showed suspect displacement of fracture at the prosthesis. Tentative plan is to proceed with surgical intervention Monday per Dr. Diehl. Continue pain management, DVT prophylaxis and medical management. She is to be nonweightbearing RLE. Current Visit: Yes Status: Acute Code(s): M97.01XA - PERIPROSTH FRACTURE AROUND INTERNAL PROSTH R HIP JT, INIT SNOMED Code(s): 381434921 (4) Right femoral fracture Current Visit: Yes Status: Acute Code(s): S72.91XA - UNSP FRACTURE OF RIGHT FEMUR, INIT FOR CLOS FX SNOMED Code(s): 32431362 (5) Fracture of femoral neck, right Current Visit: No Status: Acute Priority: Medium Code(s): S72.001A - FRACTURE OF UNSP PART OF NECK OF RIGHT FEMUR, INIT SNOMED Code(s): 7200006 (6) Hypertension Current Visit: No Status: Acute Code(s): I10 - ESSENTIAL (PRIMARY) HYPERTENSION SNOMED Code(s): 64525434
[2018-07-14] MEDS: PARoxetine 20 MG TAB PO SCH (23:42)
[2018-07-14] MEDS: LEVOTHYROXINE 25 MCG TAB PO SCH (23:42)
[2018-07-15] MEDS: SODIUM CHLORIDE 0.9% 1,000 ML IV SCH ×3 (07:25→22:20)
[2018-07-15] MEDS: PANTOPRAZOLE 40 MG/10 ML VIAL IV SCH (07:39)
[2018-07-15] MEDS: LOSARTAN 25 MG TAB PO SCH (07:40)
[2018-07-15] MEDS: busPIRone HCl 5 MG TAB PO SCH ×3 (07:40→17:10)
[2018-07-15] MEDS: HEPARIN SODIUM,PORCINE 5,000 UNIT/ML 1 ML VIAL SQ SCH ×2 (07:40→20:27)
[2018-07-15] MEDS: DOCUSATE 100 MG CAP PO SCH ×2 (07:40→20:27)
[2018-07-15] MEDS: buPROPion XL 150 MG TAB.ER.24H PO SCH (07:40)
[2018-07-15] MEDS: SENNOSIDES-DOCUSATE SODIUM 1 EACH TAB PO SCH (07:41)
[2018-07-15] MEDS: HYDROcodone/APAP 5-325MG 1 EACH TAB PO PRN ×2 (07:41→20:27)
[2018-07-15] MEDS: ALVIMOPAN 12 MG CAPSULE PO SCH ×2 (07:43→20:27)
--- NOTE | 2018-07-15 09:56 | P.PN ---
Subjective Progress Note Date: 07/14/18 82-year-old female admitted secondary to right knee fraction the periprosthetic area. Patient is still complaining of severe pain. Patient is definitely constipated because of her uncontrolled pain we'll increase the dose of morphine. Patient is also on Toradol. Patient has moderate to severe dementia probably vascular dementia her functionality is extremely poor and recent days and is expected to get worse with this fracture. Patient son was at bedside who believes that the patient is more appropriate for hospice. Considering her poor functionality and her dementia I believe comfort care or hospice is an appropriate option. 07/14/2018 Pain is better controlled with the present pain regimen today patient did have a bowel movement orthopedic surgery is planning on surgical intervention on Monday and family is agreeable with that. REVIEW OF SYSTEMS: CONSTITUTIONAL: No fever, no malaise, no fatigue. HEENT: No recent visual problems or hearing problems. Denied any sore throat. CARDIOVASCULAR: No chest pain, orthopnea, PND, no palpitations, no syncope. PULMONARY: No shortness of breath, no cough, no hemoptysis. GASTROINTESTINAL: No diarrhea, no nausea, no vomiting, no abdominal pain. NEUROLOGICAL: No headaches, no weakness, no numbness. HEMATOLOGICAL: Denies any bleeding or petechiae. GENITOURINARY: Denies any burning micturition, frequency, or urgency. MUSCULOSKELETAL/RHEUMATOLOGICAL: Denies any joint pain, swelling, or any muscle pain. ENDOCRINE: Denies any polyuria or polydipsia. The rest of the 14-point review of systems is negative. Objective - Vital Signs Vital signs: Vital Signs Temp 98.2 F 07/15/18 07:30 Pulse 82 07/15/18 07:30 Resp 16 07/15/18 07:50 BP 170/89 07/15/18 07:30 Pulse Ox 96 07/15/18 07:30 Intake & Output 07/14/18 07/15/18 07/15/18 18:59 06:59 18:59 Output Total 400 Balance -400 Output: Urine 400 Other: Voiding Method Bedside Commode Bedpan Bedside Commode Incontinent Diaper Urinal Incontinent Diaper Incontinent # Voids 1 1 # Bowel Movements 1 - Exam PHYSICAL EXAMINATION: GENERAL: The patient is alert and oriented x2-3, not in any acute distress. Thin built female HEENT: Pupils are round and equally reacting to light. EOMI. No scleral icterus. No conjunctival pallor. Normocephalic, atraumatic. No pharyngeal erythema. No thyromegaly. CARDIOVASCULAR: S1 and S2 present. No murmurs, rubs, or gallops. PULMONARY: Chest is clear to auscultation, no wheezing or crackles. ABDOMEN: Soft, nontender, nondistended, normoactive bowel sounds. No palpable organomegaly. MUSCULOSKELETAL: Patient has significant pain unable to move her right hip area no significant swelling was appreciated EXTREMITIES: No cyanosis, clubbing, or pedal edema. NEUROLOGICAL: Gross neurological examination did not reveal any focal deficits. SKIN: No rashes. - Labs CBC & Chem 7: 07/11/18 16:29 07/11/18 16:29 Labs: Microbiology - Last 24 Hours (Table) 07/12/18 02:20 Urine Culture - Final Urine,Catheterized Escherichia coli Assessment and Plan Plan: right hip pain: Probably due to the periprosthetic fracture in the right hip area. This is being managed by orthopedic surgery: Pain management as mentioned above. 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 Prophylactic antiseizure medications are being discontinued -COPD without any acute exacerbation. -Hyperlipidemia -Hypertension -Hypothyroidism.
--- NOTE | 2018-07-15 13:13 | P.PN ---
Subjective Progress Note Date: 07/15/18 Principal diagnosis: periprosthetic trochanteric fracture of the right hip This is an 82-year-old female seen at bedside this morning. We are following her for a periprosthetic trochanteric fracture of the right hip. She has pain at the fracture site at the right hip as expected. She has no new complaints. She denies calf pain, fever, chills, chest pain, dyspnea, numbness or tingling. Objective - Vital Signs Vital signs: Vital Signs Temp 98.2 F 07/15/18 07:30 Pulse 82 07/15/18 07:30 Resp 16 07/15/18 07:50 BP 170/89 07/15/18 07:30 Pulse Ox 96 07/15/18 07:30 Intake & Output 07/14/18 07/15/18 07/15/18 18:59 06:59 18:59 Output Total 400 1000 Balance -400 -1000 Output: Urine 400 1000 Other: Voiding Method Bedside Commode Bedpan Bedside Commode Incontinent Diaper Urinal Incontinent Diaper Incontinent # Voids 1 1 # Bowel Movements 1 - Exam Inspection of right lower extremity shows a well healed surgical wound. There is resolving echymosis. Neurovascular status is intact throughout the lower extremity with motor and sensation fully intact. Calf is soft and nontender. 2 + dorsalis pedis pulse and less than 2 second cap refill is present. - Constitutional General appearance: Present: no acute distress - Labs CBC & Chem 7: 07/11/18 16:29 07/11/18 16:29 Labs: Microbiology - Last 24 Hours (Table) 07/12/18 02:20 Urine Culture - Final Urine,Catheterized Escherichia coli Assessment and Plan (1) Major neurocognitive disorder due to vascular disease, without behavioral disturbance, severe Current Visit: Yes Status: Acute Priority: Medium Code(s): F01.50 - VASCULAR DEMENTIA WITHOUT BEHAVIORAL DISTURBANCE SNOMED Code(s): 535840709 (2) Multiple falls Current Visit: Yes Status: Acute Priority: Medium Code(s): R29.6 - REPEATED FALLS SNOMED Code(s): 528655341 (3) Periprosthetic fracture around internal prosthetic right hip joint Narrative/Plan: Tentative plan is to proceed with surgical intervention 07/16/[address] Diehl regarding her right periprosthetic femur fracture. Continue pain management, DVT prophylaxis and medical management. She is to be nonweightbearing RLE. She is NPO after MN. Current Visit: Yes Status: Acute Priority: Medium Code(s): M97.01XA - PERIPROSTH FRACTURE AROUND INTERNAL PROSTH R HIP JT, INIT SNOMED Code(s): 708387390 (4) Right femoral fracture Current Visit: Yes Status: Acute Code(s): S72.91XA - UNSP FRACTURE OF RIGHT FEMUR, INIT FOR CLOS FX SNOMED Code(s): 06823141 (5) Fracture of femoral neck, right Current Visit: No Status: Acute Priority: Medium Code(s): S72.001A - FRACTURE OF UNSP PART OF NECK OF RIGHT FEMUR, INIT SNOMED Code(s): 2521679 (6) Hypertension Current Visit: No Status: Acute Code(s): I10 - ESSENTIAL (PRIMARY) HYPERTENSION SNOMED Code(s): 01212905
[2018-07-15] MEDS: ONDANSETRON 4 MG/2 ML VIAL IVP PRN (14:04)
--- NOTE | 2018-07-15 16:43 | XR ---
EXAMINATION TYPE: XR abdomen acute w cxr DATE OF EXAM: 07/15/2018 COMPARISON: Prior chest x-ray 07/11/2018 HISTORY: Nausea, vomiting, abdomen pain TECHNIQUE: Supine, upright, and frontal chest views of the abdomen and chest are obtained. FINDINGS: Surgical clips present right upper quadrant, inferior vena cava filter is present overlying the L2 and L3 vertebral bodies of the right of midline, patient is post right lateral hip arthroplas ties. Bone mineralization is reduced. There are vascular calcifications within the pelvis. There is no evidence for pneumoperitoneum. The bowel gas pattern is unremarkable as there is air throughout nondilated small and large bowel. No sizeable air fluid levels. No mass effects are seen. No unusual calcifications. Chest shows no acute abnormality. Chest wall deformity along the right he mithorax superiorly is stable and likely due to old trauma. Arthropathy present within the shoulders. IMPRESSION: Postprocedural and postop changes.
--- NOTE | 2018-07-15 17:38 | P.PN ---
Subjective 82-year-old female admitted secondary to right knee fraction the periprosthetic area. Patient is still complaining of severe pain. Patient is definitely constipated because of her uncontrolled pain we'll increase the dose of morphine. Patient is also on Toradol. Patient has moderate to severe dementia probably vascular dementia her functionality is extremely poor and recent days and is expected to get worse with this fracture. Patient son was at bedside who believes that the patient is more appropriate for hospice. Considering her poor functionality and her dementia I believe comfort care or hospice is an appropriate option. 07/14/2018 Pain is better controlled with the present pain regimen today patient did have a bowel movement orthopedic surgery is planning on surgical intervention on Monday and family is agreeable with that. 07/15/2018 No significant overnight events Constitutional: Denied any fatigue denied any fever. Cardio vascular: denied any chest pain, palpitations Gastrointestinal denied any nausea vomiting Pulmonary: Denied any shortness of breath cough Neurologic denied any new focal deficits All inpatient medications were reviewed and appropriate changes in these medications as dictated in the interval history and assessment and plan. Objective - Vital Signs Vital signs: Vital Signs Temp 98.3 F 07/15/18 14:24 Pulse 62 07/15/18 14:24 Resp 16 07/15/18 07:50 BP 161/55 07/15/18 14:24 Pulse Ox 97 07/15/18 14:24 Intake & Output 07/14/18 07/15/18 07/15/18 18:59 06:59 18:59 Output Total 400 1000 Balance -400 -1000 Output: Urine 400 1000 Other: Voiding Method Bedside Commode Bedpan Bedside Commode Incontinent Diaper Urinal Incontinent Diaper Incontinent # Voids 1 1 # Bowel Movements 1 - Exam PHYSICAL EXAMINATION: GENERAL: The patient is alert and oriented x2-3, not in any acute distress. Thin built female HEENT: Pupils are round and equally reacting to light. EOMI. No scleral icterus. No conjunctival pallor. Normocephalic, atraumatic. No pharyngeal erythema. No thyromegaly. CARDIOVASCULAR: S1 and S2 present. No murmurs, rubs, or gallops. PULMONARY: Chest is clear to auscultation, no wheezing or crackles. ABDOMEN: Soft, nontender, nondistended, normoactive bowel sounds. No palpable organomegaly. MUSCULOSKELETAL: Patient has significant pain unable to move her right hip area no significant swelling was appreciated EXTREMITIES: No cyanosis, clubbing, or pedal edema. NEUROLOGICAL: Gross neurological examination did not reveal any focal deficits. SKIN: No rashes. - Labs CBC & Chem 7: 07/11/18 16:29 07/11/18 16:29 Assessment and Plan Plan: right hip pain: Probably due to the periprosthetic fracture in the right hip area. This is being managed by orthopedic surgery: Pain management as mentioned above. 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 Prophylactic antiseizure medications are being discontinued -COPD without any acute exacerbation. -Hyperlipidemia -Hypertension -Hypothyroidism.
[2018-07-15] MEDS: LEVOTHYROXINE 25 MCG TAB PO SCH (20:27)
[2018-07-15] MEDS: PARoxetine 20 MG TAB PO SCH (20:27)
[2018-07-16 07:19] LABS: HCT 30.3 % (34.0-46.0); HGB 9.8 gm/dL (11.4-16.0); MCH 29.2 pg (25.0-35.0); MCHC 32.3 g/dL (31.0-37.0); MCV 90.2 fL (80.0-100.0); Platelet Count 197 k/uL (150-450); RBC 3.36 m/uL (3.80-5.40); RDW 15.3 % (11.5-15.5); WBC 5.4 k/uL (3.8-10.6)
[2018-07-16 07:30] LABS: Anion Gap 3 mmol/L; Blood Urea Nitrogen 8 mg/dL (7-17); Calcium 9.1 mg/dL (8.4-10.2); Carbon Dioxide 31 mmol/L (22-30); Chloride 106 mmol/L (98-107); Glucose 101 mg/dL (74-99); Potassium 3.4 mmol/L (3.5-5.1); Sodium 140 mmol/L (137-145)
--- NOTE | 2018-07-16 08:22 | P.PN ---
Subjective Progress Note Date: 07/16/18 Principal diagnosis: Periprosthetic fracture right hip. History of bilateral total hip arthroplasty. Dementia. This is an 82-year-old female who we're following regarding her nondisplaced periprosthetic trochanteric fracture of the right hip. She initially was doing fairly well with minimal pain. Her initial x-rays showed no displacement. Repeat x-rays taken on 07/13/2018 reveal mild displacement of a proximal femoral shaft fracture. Findings have been discussed with the patient and her family. They have consented to open reduction showed fixation of the periprosthetic fracture right proximal femur. Objective - Vital Signs Vital signs: Vital Signs Temp 98.9 F 07/15/18 23:57 Pulse 76 07/16/18 03:31 Resp 18 07/16/18 03:31 BP 129/69 07/15/18 23:57 Pulse Ox 96 07/15/18 23:57 Intake & Output 07/15/18 07/16/18 07/16/18 18:59 06:59 18:59 Output Total 1000 Balance -1000 Output: Urine 1000 Other: Voiding Method Bedside Commode Bedside Commode Urinal Urinal Diaper Diaper Incontinent Incontinent - Exam This is an 82-year-old female in no acute distress. She is alert and oriented to person. Exam of the right hip reveals no obvious deformity. She has pain with motion of the right hip in bed. She has full foot and ankle motion without difficulty. Neurovascular status to the lower extremity is intact. - Labs CBC & Chem 7: 07/16/18 06:34 07/16/18 06:34 Labs: Abnormal Lab Results - Last 24 Hours (Table) 07/16/18 07/16/18 Range/Units 06:34 06:34 RBC 3.36 L (3.80-5.40) m/uL Hgb 9.8 L (11.4-16.0) gm/dL Hct 30.3 L (34.0-46.0) % Potassium 3.4 L (3.5-5.1) mmol/L Carbon Dioxide 31 H (22-30) mmol/L Glucose 101 H (74-99) mg/dL Assessment and Plan (1) Multiple falls Current Visit: Yes Status: Acute Priority: Medium Code(s): R29.6 - REPEATED FALLS SNOMED Code(s): 338135538 (2) Periprosthetic fracture around internal prosthetic right hip joint Current Visit: Yes Status: Acute Priority: Medium Code(s): M97.01XA - PERIPROSTH FRACTURE AROUND INTERNAL PROSTH R HIP JVu, INIT SNOMED Code(s): 771311761 Plan: The clinical and x-ray findings are discussed with the patient and her daughter. They consent to open reduction internal fixation of the right proximal femur with cable plate and possible claw plate. Surgery is scheduled for today.
[2018-07-16] MEDS: DOCUSATE 100 MG CAP PO SCH ×2 (08:23→22:31)
[2018-07-16] MEDS: SENNOSIDES-DOCUSATE SODIUM 1 EACH TAB PO SCH (08:23)
[2018-07-16] MEDS: ALVIMOPAN 12 MG CAPSULE PO SCH ×2 (08:23→22:31)
[2018-07-16] MEDS: buPROPion XL 150 MG TAB.ER.24H PO SCH (08:23)
[2018-07-16] MEDS: HEPARIN SODIUM,PORCINE 5,000 UNIT/ML 1 ML VIAL SQ SCH (08:25)
[2018-07-16] MEDS: PANTOPRAZOLE 40 MG/10 ML VIAL IV SCH (08:30)
[2018-07-16] MEDS: busPIRone HCl 5 MG TAB PO SCH ×3 (08:30→22:31)
[2018-07-16] MEDS: SODIUM CHLORIDE 0.9% 1,000 ML IV SCH ×2 (08:30→17:51)
[2018-07-16] MEDS: LOSARTAN 25 MG TAB PO SCH (08:30)
[2018-07-16] MEDS: HYDROcodone/APAP 5-325MG 1 EACH TAB PO PRN (08:36)
[2018-07-16] MEDS: HYDROmorphone 1 MG/ML 1 ML SYRINGE IVP ONE ×4 (09:06→19:32)
[2018-07-16] MEDS: ONDANSETRON 4 MG/2 ML VIAL IVP PRN (13:55)
[2018-07-16] MEDS: MORPHINE SULFATE 4 MG/ML SYRINGE IVP PRN (13:56)
[2018-07-16] MEDS ORDERED: IV FLUID CONTINUATION 1,000 ML IV ONE (15:11)
[2018-07-16] MEDS: IV FLUID CONTINUATION 1,000 ML IV ONE ×2 (15:11→15:58)
[2018-07-16] MEDS ORDERED: ceFAZolin IN SWFI 2 GM/20 ML SYRINGE IVP ONE ×2 (15:20→15:30)
[2018-07-16] MEDS ORDERED: KETAMINE 10 MG/ML 20 ML VIAL ONE (15:55)
[2018-07-16] MEDS ORDERED: ePHEDrine SULFATE/0.9% NACL/PF 50 MG/5 ML SYRINGE IV ONE (15:55)
[2018-07-16] MEDS ORDERED: WATER FOR INJECTION, STERILE 10 ML VIAL IV ONE (15:55)
[2018-07-16] MEDS ORDERED: MIDAZOLAM 2 MG/2 ML VIAL ONE (15:55)
[2018-07-16] MEDS ORDERED: fentaNYL (PF) 50 MCG/ML 2 ML AMP ONE (15:55)
[2018-07-16] MEDS ORDERED: LACTATED RINGERS 1,000 ML IV ONE ×2 (16:15→18:27)
[2018-07-16] MEDS ORDERED: ceFAZolin 3,000 MG in SODIUM CHLORIDE 0.9% IRRIGATIO 3,000 ML IRRIGATION ONE (17:00)
[2018-07-16] MEDS ORDERED: DIAZEPAM 5 MG TAB PO PRN (18:52)
[2018-07-16] MEDS ORDERED: HYDROmorphone 0.5 MG/0.5 ML SYRINGE IVP PRN ×2 (18:52)
[2018-07-16] MEDS ORDERED: ACETAMINOPHEN TAB 325 MG TAB PO PRN (18:52)
[2018-07-16] MEDS ORDERED: NALOXONE 0.4 MG/ML 1 ML VIAL IV PRN (18:52)
[2018-07-16] MEDS: LEVOTHYROXINE 25 MCG TAB PO SCH (22:41)
[2018-07-16] MEDS: PARoxetine 20 MG TAB PO SCH (23:06)
[2018-07-16] MEDS: LACTATED RINGERS 1,000 ML IV SCH (23:06)
[2018-07-17] MEDS: LACTATED RINGERS 1,000 ML IV SCH ×2 (01:06→13:11)
[2018-07-17] MEDS: HYDROmorphone 0.5 MG/0.5 ML SYRINGE IVP PRN ×4 (01:07→13:21)
[2018-07-17] MEDS: ONDANSETRON 4 MG/2 ML VIAL IVP PRN ×3 (01:11→19:59)
[2018-07-17] MEDS: SODIUM CHLORIDE 0.9% 1,000 ML IV SCH ×3 (04:38→20:01)
[2018-07-17 07:31] LABS: Basophils % (A) 0 %; Eosinophils % (A) 0 %; HCT 26.5 % (34.0-46.0); HGB 8.6 gm/dL (11.4-16.0); Hypochromasia Slight; Lymphocytes # (A) 0.5 k/uL (1.0-4.8); Lymphocytes % (A) 6 %; MCH 29.8 pg (25.0-35.0); MCHC 32.5 g/dL (31.0-37.0); MCV 91.8 fL (80.0-100.0); Mean Platelet Volume 6.5; Monocytes # (A) 0.5 k/uL (0-1.0); Monocytes % (A) 6 %; Neutrophils # (A) 7.6 k/uL (1.3-7.7); Neutrophils % (A) 86 %; Platelet Count 183 k/uL (150-450); RBC 2.89 m/uL (3.80-5.40); RDW 15.2 % (11.5-15.5); WBC 8.8 k/uL (3.8-10.6)
[2018-07-17] MEDS: LOSARTAN 25 MG TAB PO SCH (08:36)
[2018-07-17] MEDS: PANTOPRAZOLE 40 MG/10 ML VIAL IV SCH (08:36)
[2018-07-17] MEDS: busPIRone HCl 5 MG TAB PO SCH ×3 (08:36→17:48)
[2018-07-17] MEDS: ALVIMOPAN 12 MG CAPSULE PO SCH ×2 (08:36→22:02)
[2018-07-17] MEDS: DOCUSATE 100 MG CAP PO SCH ×2 (08:36→22:02)
[2018-07-17] MEDS: buPROPion XL 150 MG TAB.ER.24H PO SCH (08:37)
[2018-07-17] MEDS: RIVAROXABAN 10 MG TAB PO SCH (08:37)
[2018-07-17] MEDS: HYDROcodone/APAP 5-325MG 1 EACH TAB PO PRN ×2 (08:37→18:31)
[2018-07-17] MEDS: SENNOSIDES-DOCUSATE SODIUM 1 EACH TAB PO SCH (08:37)
--- NOTE | 2018-07-17 09:23 | FL ---
EXAMINATION TYPE: FL guidance operating room DATE OF EXAM: 07/16/2018 HISTORY: Flouroscopy time 8 seconds of fluoroscopy provided. IMPRESSION: 1. Fluoroscopy time.
[2018-07-17] MEDS ORDERED: HYDROcodone/APAP 5-325MG 1 EACH TAB PO PRN (10:45)
--- NOTE | 2018-07-17 10:51 | P.PN ---
Subjective Progress Note Date: 07/17/18 Principal diagnosis: Status post ORIF right hip periprosthetic fracture This is an 82 year-old female post ORIF right hip periprosthetic fracture. This is post-op day 1. The patient was evaluated at the bedside today. The patient denies nausea, vomiting, abdominal pain, shortness of breath, and chest pain this morning. She states her pain is not controlled at this time. The patient has not been up with physical therapy. Objective - Vital Signs Vital signs: Vital Signs Temp 99.0 F 07/17/18 08:46 Pulse 82 07/17/18 08:46 Resp 18 07/17/18 08:46 BP 170/68 07/17/18 08:46 Pulse Ox 96 07/17/18 08:46 Intake & Output 07/16/18 07/17/18 07/17/18 18:59 06:59 18:59 Intake Total 2041 1300 118 Output Total 300 275 Balance 1741 1025 118 Intake: IV 1241 200 Intake, IV Titration 800 1100 Amount Lactated Ringers 1,000 ml 1100 @ 100 mls/hr IV .Q10H RON Rx#:[id number] Sodium Chloride 0.9% 1, 800 000 ml @ 100 mls/hr IV . Q10H RON Rx#:[id number] Oral 118 Output: Urine 275 Uretheral (Martinez) 275 Estimated Blood Loss 300 Other: Voiding Method Bedside Commode Indwelling Catheter Urinal Diaper Incontinent - Exam The patient does not appear in acute distress. Alert and orientated x3. Dressing is clean dry and intact. Incision appears fine with no erythema or active drainage. Calf is soft and nontender. Good foot and ankle motion without difficulty. Sensation and circulatory status is intact. - Labs CBC & Chem 7: 07/17/18 06:06 07/16/18 06:34 Labs: Abnormal Lab Results - Last 24 Hours (Table) 07/17/18 Range/Units 06:06 RBC 2.89 L (3.80-5.40) m/uL Hgb 8.6 L (11.4-16.0) gm/dL Hct 26.5 L (34.0-46.0) % Lymphocytes # 0.5 L (1.0-4.8) k/uL Microbiology - Last 24 Hours (Table) 07/16/18 18:24 Gram Stain - Preliminary Hip - Right Wound Culture - Preliminary 07/16/18 18:24 Fungal Culture - Preliminary Hip - Right 07/16/18 18:24 Anaerobic Culture - Preliminary Hip - Right Assessment and Plan (1) Multiple falls Current Visit: Yes Status: Acute Priority: Medium Code(s): R29.6 - REPEATED FALLS SNOMED Code(s): 205886781 (2) Periprosthetic fracture around internal prosthetic right hip joint Current Visit: Yes Status: Acute Priority: Medium Code(s): M97.01XA - PERIPROSTH FRACTURE AROUND INTERNAL PROSTH R HIP JT, INIT SNOMED Code(s): 375682455 (3) Hypertension Current Visit: No Status: Acute Code(s): I10 - ESSENTIAL (PRIMARY) HYPERTENSION SNOMED Code(s): 12129630 Plan: 1. Continue pain control 2. Anticoagulation with Heparin per internal medicine 3. Start physical therapy with bed to chair transfers only with non- weightbearing on the right leg 4. Anticipate discharge to skilled rehab later this week most likely.
--- NOTE | 2018-07-17 13:21 | PN ---
PROGRESS NOTE DATE OF SERVICE: 07/16/2018 CHIEF COMPLAINT: Fracture of the right femur. HISTORY OF PRESENT ILLNESS: This lady is a doing fairly well and is fairly stable and apparently is going to go to the operating room today. PHYSICAL EXAM: She remains pale and her ecchymosis of the face. Chest is clear. The cardiac exam is sinus rhythm. The abdomen is soft, nontender. IMPRESSION: 1. Fall with fracture right femur and facial contusions. 2. Dementia. PLAN: Await recommendation of Orthopedics, and she may be going for surgery today. MMODL / IJN: [id number] /
--- NOTE | 2018-07-17 13:36 | PN ---
PROGRESS NOTE 07/17/2018 CHIEF COMPLAINT: Fracture of the right femur. HISTORY OF PRESENT ILLNESS: This lady is fairly stable. She is awake and alert. Surgery was done yesterday. PHYSICAL EXAM: She remains pale. Breath sounds are heard bilaterally. Cardiac exam is normal. IMPRESSION: 1. Fall with facial contusions and fracture right femur. 2. Status post ORIF of right femur. PLAN: Continue postop supportive care until she can be returned to the [facility]. MMODL / IJN: [id number] /
[2018-07-17 15:15] VITALS: BMI 20.9
[2018-07-17] MEDS: LEVOTHYROXINE 25 MCG TAB PO SCH (22:02)
[2018-07-17] MEDS: PARoxetine 20 MG TAB PO SCH (22:02)
[2018-07-18] MEDS: HYDROcodone/APAP 5-325MG 1 EACH TAB PO PRN ×3 (00:54→18:11)
[2018-07-18] MEDS: LACTATED RINGERS 1,000 ML IV SCH ×3 (01:43→21:39)
[2018-07-18] MEDS: DOCUSATE 100 MG CAP PO SCH ×2 (10:00→21:34)
[2018-07-18] MEDS: ALVIMOPAN 12 MG CAPSULE PO SCH ×2 (10:00→21:34)
[2018-07-18] MEDS: RIVAROXABAN 10 MG TAB PO SCH (10:00)
[2018-07-18] MEDS: PANTOPRAZOLE 40 MG/10 ML VIAL IV SCH (10:00)
[2018-07-18] MEDS: busPIRone HCl 5 MG TAB PO SCH ×3 (10:00→18:01)
[2018-07-18] MEDS: SENNOSIDES-DOCUSATE SODIUM 1 EACH TAB PO SCH (10:00)
[2018-07-18] MEDS: buPROPion XL 150 MG TAB.ER.24H PO SCH (10:00)
[2018-07-18] MEDS: LOSARTAN 25 MG TAB PO SCH (10:00)
--- NOTE | 2018-07-18 10:35 | P.PN ---
Subjective Progress Note Date: 07/18/18 Principal diagnosis: Periprosthetic fracture right hip. History of bilateral total hip arthroplasty. Dementia. This is an 82-year-old female who we're following regarding her nondisplaced periprosthetic trochanteric fracture of the right hip. She initially was doing fairly well with minimal pain. Her initial x-rays showed no displacement. Repeat x-rays taken on 07/13/2018 reveal mild displacement of a proximal femoral shaft fracture. Findings have been discussed with the patient and her family. She is postoperative day #2 status post open reduction internal fixation periprosthetic right hip fracture. She has no new complaints or concerns today. Vital signs are stable. Objective - Vital Signs Vital signs: Vital Signs Temp 97.7 F 07/18/18 08:04 Pulse 74 07/18/18 08:04 Resp 16 07/18/18 08:04 BP 158/71 07/18/18 08:04 Pulse Ox 95 07/18/18 08:04 Intake & Output 07/17/18 07/18/18 07/18/18 18:59 06:59 18:59 Intake Total 1596 900 Output Total 2000 Balance 1596 -1100 Weight 58.967 kg Intake: Intake, IV Titration 800 900 Amount Lactated Ringers 1,000 ml 900 @ 100 mls/hr IV .Q10H RON Rx#:[id number] Sodium Chloride 0.9% 1, 800 000 ml @ 100 mls/hr IV . Q10H RON Rx#:[id number] Oral 596 Other 200 Output: Urine 2000 Uretheral (Martinez) 2000 Other: Voiding Method Indwelling Catheter Indwelling Catheter Indwelling Catheter # Voids 3 - Exam This is an 82-year-old female in no acute distress. She is alert and oriented to person. Exam of the right hip reveals no obvious deformity. Dressing is clean, dry and intact. She has full foot and ankle motion without difficulty or pain. Neurovascular status to the lower extremity is intact. - Labs CBC & Chem 7: 07/17/18 06:06 07/16/18 06:34 Labs: Microbiology - Last 24 Hours (Table) 07/16/18 18:24 Gram Stain - Preliminary Hip - Right Wound Culture - Preliminary Assessment and Plan (1) Multiple falls Current Visit: Yes Status: Acute Priority: Medium Code(s): R29.6 - REPEATED FALLS SNOMED Code(s): 546480676 (2) Periprosthetic fracture around internal prosthetic right hip joint Current Visit: Yes Status: Acute Priority: Medium Code(s): M97.01XA - PERIPROSTH FRACTURE AROUND INTERNAL PROSTH R HIP JT, INIT SNOMED Code(s): 881352130 Plan: The clinical and x-ray findings are discussed with the patient. Continue current care. She is bed to chair transfer only at this time. May discontinue Martinez catheter. May transfer to inpatient rehab when cleared medically.
--- NOTE | 2018-07-18 13:34 | P.OP ---
Date of Procedure: 07/16/18 Procedure(s) Performed: PREOPERATIVE DIAGNOSES: 1. Right hip trochanteric periprosthetic fracture, acute 2. Well-positioned stable hemiarthroplasty hip implant POSTOPERATIVE DIAGNOSES: 1. Right hip trochanteric periprosthetic fracture, acute 2. Well-positioned stable hemiarthroplasty hip implant PROCEDURES PERFORMED: 1. Right hip trochanteric area prosthetic fracture open reduction and internal fixation using lateral claw plate with multi-cable fixation ANESTHESIA:Spinal ELECTRIC MOTOR REPAIRER: Sarah Jimenez PA-C (assistance with: Patient positioning, retraction, exposure, fixation, hemostasis, closure, dressing, splint) COMPLICATIONS: None ESTIMATED BLOOD LOSS:Approximately 300 mL DISPOSITION: To post-anesthesia care unit INDICATIONS: Mrs. Villanueva is an 82-year-old female with a history of dementia who has sustained a fracture of her right hip due to a fall. She has a mildly displaced fracture of her trochanteric region adjacent to a well fixed cemented hemiarthroplasty implant. Evidently this implant was placed in 2014. The fracture on admission was basically nondisplaced but as she moved in the bed within the past 24 hours, the fracture has come apart slightly and a fear that due to the size of the fragment, the displacement will continue, especially in light of this patient's dementia. I have advised open reduction and internal fixation. I have explained the risks and potential complications of this surgerywith the patient and her family (son and daughter) as being inclusive of but not limited to bleeding, infection, scarring, discomfort, blood vessel and/or nerve damage, malunion, nonunion, stiffness, hardware irritation, deformity, rotational abnormality, need for further surgery, and other risks. We have extensively discussed the risk ofhardware prominence and irritationt, which is something that commonly occurs with these kinds of injuries. We have discussed the need for extended rehabilitation and occupational therapy, and the very real chance that she will be unable to walk normally (or at all) in the future. The consent form has been signed. PROCEDURE: After appropriate consent was obtained, the patient was taken to the operating room placed in the supine position. Anesthesia was initiated, and after confirmation of adequate anesthesia, the patient was carefully positioned. Care was taken to make sure that all pressure points were adequately padded. Timeout was called, confirming patient identity, side, procedure, and administration of antibiotics.2 g of intravenous Kefzol were administered within 30 minutes of the incision. While the patient was still supine and anesthetized, interrogation of the implant for stability was performed using C-arm guidance. The hip was stressed with rotation, flexion extension abduction and adduction under C-arm imaging and these motions were found to be stable without evidence of twisting or instability of the implant. However, it was noted that the trochanteric fracture was unstable. Finally, longitudinal traction was placed on the joint to evaluate whether there was any longitudinal instability of the component and there was none. Prepping and draping were completed in the usual aseptic fashion using ChloraPrep. A fairly compact anterolateral approach had been previously used by the original surgeon. As I'm not comfortable with that approach, I utilized a posterior approach to the hip trying to leave as much skin between the new incision and the scar as possible. The incision was carried down through skin into subcutaneous tissues and down to muscular fascia. Total length of the incision was approximately 9-10 inches. Fascia luna was split in line with the incision and carried posteriorly along the fibers of the gluteus johnnie. Dissection proceeded around the posterior aspect of the upper femur to the lesser trochanteric region which was able to be well-visualized with dissection in this region. Entry into the joint was avoided. Incision directly into the vastus lateralis fascia was performed in line with its fibers and spread down to lateral shaft of the femur. The trochanteric fracture came into view and was cleansed of debris using a curette and [place] elevator. The fracture was unstable and mildly to moderately displaced but the implant was stable based on the previous AP and lateral C-arm imaging under stress. Using a pointed reduction forceps, the fracture was able to be reduced fairly well anatomically as the distal spike of bone was able to be keyed in very well into its anatomic position. There was further comminution proximally and therefore I felt that simple cable fixation would not be sufficient. Therefore a cable plate was called for that extended just below the level of the implant. This was attached laterally onto the femur around the trochanteric region and the spikes were engaged with gentle tapping of the implant to engage the spikes into the trochanteric fragment proximally. Once an acceptable position had been obtained, the cable plate was provisionally fixed in position with a cerclage cable and C-arm imaging was used to make final adjustments to the plate position and the fracture site as necessary. Once an acceptable reduction and plate placement was confirmed, the cable plate was secured with 5 cables through the plate placed carefully circumferentially around the femur and the trochanteric region. The cables were first provisionally placed, with the wire clamp. When placing the cables, care was taken to make sure that the cable socket puller remained on the bone so that muscle and neurovascular structures would not be trapped by the cerclage cable. Once all 5 cables were placed, C-arm imaging was then used to confirm that the reduction was satisfactory and that the cable positions were satisfactory. The cables were then tested for tightness and retensioned to approximately 90 pounds as necessary and crimped into position with the screw on the cable plate. The hip was then taken through gentle range of motion under C-arm guidance and the fracture of the trochanteric region remained stable and well fixed. For additional fixation, #2 FiberWire was used through the cable plate and brought into the abductor tendon with a small Krakw type weave. This was performed in 2 locations. Subsequent, the area was thoroughly irrigated with normal saline as well as Irricept solution. Hemostasis was maintained throughout the case using electrocautery and EBL was approximately 300 mL. closure was performed using # 1 Vicryl suture to close the vastus lateralis fascia over the plate , followed by #2 Quill suture within the fascia and the IT band. Multilayer 2-0 Vicryl suture was used within the subcutaneous tissues followed by running 3-0 Quill type suture for the skin. Cyanoacrylate tape was bonded in standard fashion over the wound to seal it . Sterile dressing was then applied. Patient tolerated the procedure well and taken to recovery room in stable condition.
[2018-07-18] MEDS: SODIUM CHLORIDE 0.9% 1,000 ML IV SCH (19:41)
[2018-07-18] MEDS ORDERED: Potassium Replacement Protocol 1 EACH MISC MISCELLANE PRN (20:05)
[2018-07-18] MEDS ORDERED: POTASSIUM CHLORIDE ER 20 MEQ TAB.ER PO SCH (21:00)
[2018-07-18] MEDS: LEVOTHYROXINE 25 MCG TAB PO SCH (21:34)
[2018-07-18] MEDS: POTASSIUM CHLORIDE ER 20 MEQ TAB.ER PO SCH ×2 (21:34→23:13)
[2018-07-18] MEDS: PARoxetine 20 MG TAB PO SCH (21:34)
[2018-07-19] MEDS: POTASSIUM CHLORIDE ER 20 MEQ TAB.ER PO SCH ×3 (00:09→05:59)
[2018-07-19 03:27] LABS: Basophils % (A) 0 %; Eosinophils # (A) 0.2 k/uL (0-0.7); Eosinophils % (A) 2 %; HCT 22.1 % (34.0-46.0); HGB 7.4 gm/dL (11.4-16.0); Hypochromasia Slight; Lymphocytes % (A) 13 %; MCH 30.4 pg (25.0-35.0); MCHC 33.6 g/dL (31.0-37.0); MCV 90.5 fL (80.0-100.0); Mean Platelet Volume 6.5; Monocytes # (A) 0.5 k/uL (0-1.0); Monocytes % (A) 6 %; Neutrophils # (A) 5.8 k/uL (1.3-7.7); Neutrophils % (A) 76 %; Platelet Count 182 k/uL (150-450); RBC 2.44 m/uL (3.80-5.40); RDW 15.3 % (11.5-15.5); WBC 7.7 k/uL (3.8-10.6)
[2018-07-19] MEDS: SODIUM CHLORIDE 0.9% 1,000 ML IV SCH ×2 (04:42→17:17)
[2018-07-19] MEDS: LACTATED RINGERS 1,000 ML IV SCH ×2 (04:42→23:30)
[2018-07-19] MEDS: ACETAMINOPHEN TAB 500 MG TAB PO PRN ×3 (07:09→22:30)
--- NOTE | 2018-07-19 08:37 | P.PN ---
Subjective Progress Note Date: 07/19/18 Principal diagnosis: Periprosthetic fracture right hip. History of bilateral total hip arthroplasty. Dementia. This is an 82-year-old female who we're following regarding her nondisplaced periprosthetic trochanteric fracture of the right hip. She initially was doing fairly well with minimal pain. Her initial x-rays showed no displacement. Repeat x-rays taken on 07/13/2018 reveal mild displacement of a proximal femoral shaft fracture. Findings have been discussed with the patient and her family. She is postoperative day #3 status post open reduction internal fixation periprosthetic right hip fracture. She has no new complaints or concerns today. Vital signs are stable. Hemoglobin is 7.4. Objective - Vital Signs Vital signs: Vital Signs Temp 98.8 F 07/19/18 01:00 Pulse 61 07/19/18 01:00 Resp 16 07/19/18 01:00 BP 121/61 07/19/18 01:00 Pulse Ox 92 L 07/19/18 01:00 Intake & Output 07/18/18 07/19/18 07/19/18 18:59 06:59 18:59 Intake Total 240 870 Output Total 700 Balance -460 870 Intake: Oral 240 870 Output: Urine 700 Uretheral (Martinez) 100 Other: Voiding Method Indwelling Catheter # Voids 2 - Exam This is an 82-year-old female in no acute distress. She is alert and oriented to person. Exam of the right hip reveals no obvious deformity. Dressing is clean, dry and intact. She has full foot and ankle motion without difficulty or pain. Neurovascular status to the lower extremity is intact. - Labs CBC & Chem 7: 07/19/18 02:36 07/19/18 02:36 Labs: Abnormal Lab Results - Last 24 Hours (Table) 07/18/18 07/19/18 07/19/18 Range/Units 20:38 02:36 02:36 RBC 2.44 L (3.80-5.40) m/uL Hgb 7.4 L (11.4-16.0) gm/dL Hct 22.1 L (34.0-46.0) % Potassium 2.8 L 3.2 L (3.5-5.1) mmol/L Microbiology - Last 24 Hours (Table) 07/16/18 18:24 Anaerobic Culture - Preliminary Hip - Right 07/16/18 18:24 Gram Stain - Final Hip - Right Wound Culture - Final Assessment and Plan (1) Multiple falls Current Visit: Yes Status: Acute Priority: Medium Code(s): R29.6 - REPEATED FALLS SNOMED Code(s): 831083371 (2) Periprosthetic fracture around internal prosthetic right hip joint Current Visit: Yes Status: Acute Priority: Medium Code(s): M97.01XA - PERIPROSTH FRACTURE AROUND INTERNAL PROSTH R HIP JT, INIT SNOMED Code(s): 914404635 Plan: The clinical and x-ray findings are discussed with the patient. Continue current care. She is bed to chair transfer only at this time. Internal medicine to manage hemoglobin. May transfer to inpatient rehab when cleared medically.
[2018-07-19 08:43] LABS: Potassium 3.7 mmol/L (3.5-5.1)
[2018-07-19] MEDS ORDERED: POTASSIUM CHLORIDE ER 20 MEQ TAB.ER PO SCH (09:00)
[2018-07-19] MEDS: PANTOPRAZOLE 40 MG/10 ML VIAL IV SCH (09:50)
[2018-07-19] MEDS: LOSARTAN 25 MG TAB PO SCH (09:50)
[2018-07-19] MEDS: RIVAROXABAN 10 MG TAB PO SCH (09:51)
[2018-07-19] MEDS: DOCUSATE 100 MG CAP PO SCH ×2 (09:51→20:12)
[2018-07-19] MEDS: ALVIMOPAN 12 MG CAPSULE PO SCH ×2 (09:51→20:13)
[2018-07-19] MEDS: SENNOSIDES-DOCUSATE SODIUM 1 EACH TAB PO SCH (09:51)
[2018-07-19] MEDS: buPROPion XL 150 MG TAB.ER.24H PO SCH (09:51)
[2018-07-19] MEDS: busPIRone HCl 5 MG TAB PO SCH ×3 (09:51→20:12)
[2018-07-19 11:48] LABS: Basophils % (A) 0 %; Eosinophils # (A) 0.1 k/uL (0-0.7); Eosinophils % (A) 1 %; HCT 23.6 % (34.0-46.0); HGB 7.3 gm/dL (11.4-16.0); Hypochromasia Slight; Lymphocytes # (A) 0.8 k/uL (1.0-4.8); Lymphocytes % (A) 10 %; MCH 28.6 pg (25.0-35.0); MCHC 31.1 g/dL (31.0-37.0); MCV 92.1 fL (80.0-100.0); Mean Platelet Volume 7.4; Monocytes # (A) 0.4 k/uL (0-1.0); Monocytes % (A) 6 %; Neutrophils # (A) 6.6 k/uL (1.3-7.7); Neutrophils % (A) 81 %; Platelet Count 197 k/uL (150-450); RBC 2.56 m/uL (3.80-5.40); RDW 15.3 % (11.5-15.5); WBC 8.1 k/uL (3.8-10.6)
[2018-07-19 12:00] LABS: ALT 24 U/L (9-52); AST 19 U/L (14-36); Albumin 2.4 g/dL (3.5-5.0); Alkaline Phosphatase 56 U/L (38-126); Anion Gap 4 mmol/L; Blood Urea Nitrogen 13 mg/dL (7-17); Calcium 8.4 mg/dL (8.4-10.2); Carbon Dioxide 31 mmol/L (22-30); Chloride 102 mmol/L (98-107); Glucose 120 mg/dL (74-99); Sodium 137 mmol/L (137-145); Total Bilirubin 0.7 mg/dL (0.2-1.3); Total Protein 4.7 g/dL (6.3-8.2)
--- NOTE | 2018-07-19 15:35 | XR ---
EXAMINATION TYPE: XR chest 2V DATE OF EXAM: 07/19/2018 COMPARISON: None HISTORY: 82-year-old female anemia and shortness of breath TECHNIQUE: AP and lateral views FINDINGS: Heart upper limits of normal in size. Aorta and pulmonary vasculature within normal limits. Hyperinfl ation. No consolidation or pleural effusion. Cholecystectomy clips. Bony irregularity, probably postt raumatic involving the neck of the scapula. IMPRESSION: COPD. No acute process seen.
--- NOTE | 2018-07-19 17:38 | PN ---
PROGRESS NOTE DATE OF SERVICE: 07/18/2018 CHIEF COMPLAINT: Status post fracture of right femur. HISTORY OF PRESENT ILLNESS: This lady seems fairly stable. She seems comfortable. PHYSICAL EXAMINATION: She remains pale. Facial ecchymoses are improving. Chest is clear. Cardiac exam is normal. The abdomen is soft and dressing is dry. IMPRESSION: 1. Fracture of the right femur. 2. Dementia. PLAN: Continue to follow with Orthopedics until she is able to return to the residential. MMODL / IJN: [id number] /
--- NOTE | 2018-07-19 17:44 | PN ---
PROGRESS NOTE CHIEF COMPLAINT: Status post right femur fracture. HISTORY OF PRESENT ILLNESS: This lady is doing fairly well. Her hemoglobin has been steadily dropping, however. There is no sign of bleeding. It is down to around 7.4. PHYSICAL EXAMINATION: She is awake and alert and seems comfortable. She is pale. Chest is clear. Cardiac exam is normal. The abdomen is soft and did not seem to reveal any masses. EXTREMITIES: Normal except for dressing on the right leg. IMPRESSION: 1. Fracture of the right femur. 2. Anemia. 3. Dementia. 4. Depression. PLAN: Stool for fecal occult blood. Continue to monitor her hemoglobin. MMODL / IJN: [id number] /
[2018-07-19] MEDS: LEVOTHYROXINE 25 MCG TAB PO SCH (20:12)
[2018-07-19] MEDS: PARoxetine 20 MG TAB PO SCH (20:12)
[2018-07-20] MEDS: ONDANSETRON 4 MG/2 ML VIAL IVP PRN (01:19)
[2018-07-20] MEDS: MAGNESIUM HYDROXIDE 2,400 MG/10 ML CUP PO PRN ×2 (03:11→09:15)
[2018-07-20] MEDS: LACTATED RINGERS 1,000 ML IV SCH (04:05)
[2018-07-20 07:11] VITALS: BP 169/75; PULSE 79; RESP 16; TEMP 99
[2018-07-20] MEDS: ALVIMOPAN 12 MG CAPSULE PO SCH (09:07)
[2018-07-20] MEDS: ACETAMINOPHEN TAB 500 MG TAB PO PRN (09:15)
[2018-07-20] MEDS: RIVAROXABAN 10 MG TAB PO SCH (09:16)
[2018-07-20] MEDS: DOCUSATE 100 MG CAP PO SCH (09:16)
[2018-07-20] MEDS: busPIRone HCl 5 MG TAB PO SCH (09:16)
[2018-07-20] MEDS: SENNOSIDES-DOCUSATE SODIUM 1 EACH TAB PO SCH (09:16)
[2018-07-20] MEDS: LOSARTAN 25 MG TAB PO SCH (09:16)
[2018-07-20] MEDS: buPROPion XL 150 MG TAB.ER.24H PO SCH (09:16)
[2018-07-20] MEDS: PANTOPRAZOLE 40 MG/10 ML VIAL IV SCH (09:16)
[2018-07-20 09:44] LABS: Basophils % (A) 0 %; Eosinophils # (A) 0.1 k/uL (0-0.7); Eosinophils % (A) 2 %; HCT 24.2 % (34.0-46.0); HGB 7.8 gm/dL (11.4-16.0); Hypochromasia Moderate; Lymphocytes # (A) 0.8 k/uL (1.0-4.8); Lymphocytes % (A) 10 %; MCH 29.4 pg (25.0-35.0); MCHC 32.1 g/dL (31.0-37.0); MCV 91.5 fL (80.0-100.0); Mean Platelet Volume 6.4; Monocytes # (A) 0.4 k/uL (0-1.0); Monocytes % (A) 6 %; Neutrophils % (A) 81 %; Platelet Count 245 k/uL (150-450); RBC 2.64 m/uL (3.80-5.40); WBC 7.4 k/uL (3.8-10.6)
--- NOTE | 2018-07-20 11:45 | P.DS ---
Providers Date of admission: 07/11/18 20:02 Expected date of discharge: 07/20/18 Attending physician: Guero Diehl Consults: 07/11/18 19:19 Consult Physician Stat Consulting Provider: Thomas Salazar Consult Reason/Comments: Surgical clearance, R femur fracture Do you want consulting provider notified?: Yes Primary care physician: Thomas Salazar - Discharge Diagnosis(es) (1) Multiple falls Current Visit: Yes Status: Acute Priority: Medium (2) Periprosthetic fracture around internal prosthetic right hip joint Current Visit: Yes Status: Acute Priority: Medium Hospital Course: This is an 82-year-old female who is admitted to [facility] on 07/11/2018 after falling and sustaining injury to the right hip. On exam and x- ray in the emergency department he is found to have a periprosthetic fracture of the right proximal femur. She is admitted to our service for surgical intervention and care. The fracture initially was treated conservatively. However, repeat x-rays showed further displacement and she had increased pain. It was recommended she undergo open reduction internal fixation of the periprosthetic fracture. Patient is taken to surgery for open reduction internal fixation with claw plate and cables right proximal femur/hip. The procedure was performed without complication or sequelae. The patient is doing fairly well postoperatively. Hgb is low but stable at 7.8. Vital signs are stable on postoperative day #4. Patient is discharged to F in good condition. Please see med rec for accurate list of discharge medications. Patient Condition at Discharge: Stable Plan - Discharge Summary Discharge Rx Participant: No New Discharge Prescriptions: New HYDROcodone/APAP 5-325MG [[place] 5-325] 1 - 2 each PO Q4-6H PRN #50 tab PRN Reason: Pain Rivaroxaban [Xarelto] 10 mg PO DAILY #20 tab Sennosides-Docusate Sodium [Senokot-S] 1 tab PO BID #60 tablet Ferrous Sulfate [Iron (65 MG Elemental)] 325 mg PO TID-W/MEALS #90 tab Polyethylene Glycol 3350 [Miralax] 17 gm PO DAILY PRN powd.pack PRN Reason: Constipation Rivaroxaban [Xarelto] 10 mg PO DAILY #30 tab Continue levETIRAcetam [Keppra] 500 mg PO BID@0800,2000 Levothyroxine Sodium [Synthroid] 25 mcg PO HS Magnesium Hydroxide [Milk of Magnesia] 2,400 mg PO Q72H PRN PRN Reason: Constipation Docusate [Colace] 100 mg PO BID Sennosides-Docusate Sodium [Senokot-S] 1 tab PO DAILY PARoxetine [Paxil] 20 mg PO HS Losartan [Cozaar] 25 mg PO DAILY buPROPion XL [Wellbutrin XL] 150 mg PO DAILY Acetaminophen Tab [Tylenol] 650 mg PO Q4H PRN PRN Reason: Pain Discontinued HYDROcodone/APAP 5-325MG [[place] 5-325] 1 tab PO Q4H PRN PRN Reason: Pain busPIRone HCl [Buspar] 5 mg PO TID@0800,1200,1800 Discharge Medication List Levothyroxine Sodium [Synthroid] 25 mcg PO HS 05/05/15 [History] levETIRAcetam [Keppra] 500 mg PO BID@799,199905/05/15 [History] Acetaminophen Tab [Tylenol] 650 mg PO Q4H PRN 07/11/18 [History] Docusate [Colace] 100 mg PO BID 07/11/18 [History] Losartan [Cozaar] 25 mg PO DAILY 07/11/18 [History] Magnesium Hydroxide [Milk of Magnesia] 2,400 mg PO Q72H PRN 07/11/18 [History] PARoxetine [Paxil] 20 mg PO HS 07/11/18 [History] Sennosides-Docusate Sodium [Senokot-S] 1 tab PO DAILY 07/11/18 [History] buPROPion XL [Wellbutrin XL] 150 mg PO DAILY 07/11/18 [History] Ferrous Sulfate [Iron (65 MG Elemental)] 325 mg PO TID-W/MEALS #90 tab 07/20/18 [Rx] HYDROcodone/APAP 5-325MG [[place] 5-325] 1 - 2 each PO Q4-6H PRN #50 tab 07/20/18 [Rx] Polyethylene Glycol 3350 [Miralax] 17 gm PO DAILY PRN powd.pack 07/20/18 [Rx] Rivaroxaban [Xarelto] 10 mg PO DAILY #20 tab 07/20/18 [Rx] Rivaroxaban [Xarelto] 10 mg PO DAILY #30 tab 07/20/18 [Rx] Sennosides-Docusate Sodium [Senokot-S] 1 tab PO BID #60 tablet 07/20/18 [Rx] Follow up Appointment(s)/Referral(s): Guero Diehl MD [STAFF PHYSICIAN] - 07/26/18 4:15 pm Activity/Diet/Wound Care/Special Instructions: [facility] - bed to chair transfer only. May shower if no drainage from incision. Discharge Disposition: TRANSFER TO SNF/ECF
[2018-07-20] MEDS ORDERED: FERROUS SULFATE 325 MG TAB PO SCH (12:30)
--- NOTE | 2018-07-21 15:07 | PN ---
PROGRESS NOTE CHIEF COMPLAINT: Fracture, right femur. HISTORY OF PRESENT ILLNESS: This lady is doing fairly well and seems fairly stable. Her hemoglobin is leveled out at around 7.4. Orthopedics plans only are for moving her back to the half-way. PHYSICAL EXAM: She remains pale, but awake and alert. She remains confused. Chest is clear. Cardiac exam is normal. IMPRESSION: 1. Status post right femur fracture. 2. Depression. 3. Dementia. PLAN: Discharge to half-way today. MMODL / IJN: [id number] /
== END 2018-07-20 14:05 | DRG 481 ==
LOC: EC 16:14 → 4SSUR 20:02
PROVIDERS: ADMIT Orthopaedic Surgery; ATTEND Orthopaedic Surgery
PROC: 0QS604Z Reposition Right Upper Femur with Internal Fixation Device, Open Approach (ICD-10-PCS; principal; 2018-07-18)
DX: S72.309A Unspecified fracture of shaft of unspecified femur, initial encounter for closed fracture (principal); M97.01XA Periprosthetic fracture around internal prosthetic right hip joint, initial encounter; N39.0 Urinary tract infection, site not specified; E03.9 Hypothyroidism, unspecified; E78.5 Hyperlipidemia, unspecified; F01.50 Vascular dementia, unspecified severity, without behavioral disturbance, psychotic disturbance, mood disturbance, and anxiety; F17.200 Nicotine dependence, unspecified, uncomplicated; F32.9 Major depressive disorder, single episode, unspecified; I10 Essential (primary) hypertension; J44.9 Chronic obstructive pulmonary disease, unspecified; K59.00 Constipation, unspecified; R29.6 Repeated falls; S00.83XA Contusion of other part of head, initial encounter; W05.0XXA Fall from non-moving wheelchair, initial encounter; Z51.5 Encounter for palliative care; Z79.890 Hormone replacement therapy; Z79.899 Other long term (current) drug therapy; Z80.9 Family history of malignant neoplasm, unspecified; Z90.710 Acquired absence of both cervix and uterus; Z96.643 Presence of artificial hip joint, bilateral
CPT/HCPCS: 36415; 71045; 71046; 72170; 73501; 73502; 74022; 80048; 80053; 81001; 84132; 85025; 85027; 85610; 85730; 86850; 86900; 86901; 87070; 87075; 87077; 87086; 87102; 87186; 87205; 93005; 96361; 96374; 96376; 99285

== ENCOUNTER 2019-02-10 11:06 | Emergency (ER) | payer MEDICARE, OTHER ==
[2019-02-10 11:13] VITALS: RESP 16; TEMP 98.9
[2019-02-10] MEDS ORDERED: ACETAMINOPHEN TAB 325 MG TAB PO STA (11:30)
--- NOTE | 2019-02-10 11:37 | ED ---
Trauma HPI - General Chief Complaint: Extremity Injury, Upper Stated Complaint: Fall Time Seen by Provider: 02/10/19 11:06 Source: patient, EMS, RN notes reviewed Mode of arrival: EMS Limitations: no limitations - History of Present Illness Initial Comments: This 83-year-old female who fell at her facility today he complained of right hip pain right knee pain and right wrist pain. Per staff at her residence thought the deformity which was present in her right wrist her previous fall was worse today. She was brought in by EMS. No head neck or back pain reported she states the pain in the right wrist and hip area are 7/10 severity sharp in nature per paramedics she demonstrated no shortening or rotation of her lower extremities. No other modifying factors at this time patient states she lost her balance and could not get herself. MD Complaint: fall, injury - Related Data Home Medications Medication Instructions Recorded Confirmed Levothyroxine Sodium [Synthroid] 25 mcg PO HS 05/05/15 02/10/19 Acetaminophen Tab [Tylenol] 650 mg PO Q4H PRN 07/11/18 02/10/19 Docusate [Colace] 100 mg PO BID 07/11/18 02/10/19 HYDROcodone/APAP 5-325MG [[place] 1 tab PO Q4H PRN 02/10/19 02/10/19 5-325] Losartan Potassium 50 mg PO DAILY 02/10/19 02/10/19 Melatonin 3 mg PO HS 02/10/19 02/10/19 PARoxetine HCL [Paxil] 40 mg PO HS 02/10/19 02/10/19 traZODone HCL 50 mg PO HS 02/10/19 02/10/19 Previous Rx's Medication Instructions Recorded Ferrous Sulfate [Iron (65 MG 325 mg PO TID-W/MEALS #90 tab 07/20/18 Elemental)] Sennosides-Docusate Sodium 1 tab PO BID #60 tablet 07/20/18 [Senokot-S] Allergies Allergy/AdvReac Type Severity Reaction Status Date / Time Tetanus Vaccines and Toxoid AdvReac Unknown Verified 02/10/19 11:31 Review of Systems ROS Statement: Those systems with pertinent positive or pertinent negative responses have been documented in the HPI. ROS Other: All systems not noted in ROS Statement are negative. Past Medical History Past Medical History: COPD, Hyperlipidemia, Hypertension, Thyroid Disorder Additional Past Medical History / Comment(s): 05/05/15 R hip pain following fall. Pt states she lost balance and fell. She is being admitted with fracture neck R femur. Other HX: closed head injuries with falls and once with brain bleed following fall- on keppra prophlactically, odontoid fx 2013, L hip fx after fall with surgey, hypothyroidism, UTI. History of Any Multi-Drug Resistant Organisms: ESBL Date of last positivie culture/infection: 07/12/18 MDRO Source:: ESBL URINE Past Surgical History: Adenoidectomy, Appendectomy, Cholecystectomy, Hysterectomy, Joint Replacement, Orthopedic Surgery, Tonsillectomy Additional Past Surgical History / Comment(s): partial left hip replacement Past Anesthesia/Blood Transfusion Reactions: No Reported Reaction Additional Past Anesthesia/Blood Transfusion Reaction / Comment(s): Pt has received blood without reaction. Past Psychological History: Depression Smoking Status: Former smoker Past Alcohol Use History: None Reported Past Drug Use History: None Reported - Past Family History Father Family Medical History: CVA/TIA Additional Family Medical History / Comment(s): Father had several CVAs and at age 72 yrs. Mother Family Medical History: Cancer Additional Family Medical History / Comment(s): Mother had cancer (do not know type) and at age 72 yrs. General Exam - General Exam Comments Initial Comments: This is a well-developed asthenic appearing female who is awake alert oriented history Sabino Coma Scale of 15 Limitations: no limitations General appearance: alert, anxious Head exam: Present: atraumatic, normocephalic, normal inspection Eye exam: Present: normal appearance, PERRL, EOMI. Absent: scleral icterus, conjunctival injection, periorbital swelling ENT exam: Present: normal exam, mucous membranes moist Neck exam: Present: normal inspection, full ROM. Absent: tenderness, meningismus, lymphadenopathy Respiratory exam: Present: normal lung sounds bilaterally. Absent: respiratory distress, wheezes, rales, rhonchi, stridor Cardiovascular Exam: Present: regular rate, normal rhythm, normal heart sounds. Absent: systolic murmur, diastolic murmur, rubs, gallop, clicks GI/Abdominal exam: Present: soft, normal bowel sounds. Absent: distended, tenderness, guarding, rebound, rigid Extremities exam: Present: tenderness, normal capillary refill, other (Tennis palpation of the mid and distal forearm there is a splint in place no definite deformity noted however. No sensorimotor vascular deficits. His tennis palpation of the right hip no shortening or rotation laterally or medially. No tenderness of the pelvis a pelvic rock. Examination right knee reveals some tenderness palpation of the anterior knee no definite deformity no crepitation no step-off.). Absent: pedal edema, joint swelling, calf tenderness Back exam: Present: normal inspection Neurological exam: Present: alert, oriented X3, CN II-XII intact Psychiatric exam: Present: normal affect, anxious Skin exam: Present: warm, dry, intact, normal color. Absent: rash Course Vital Signs 02/10/19 11:08 Temperature 98.9 F Pulse Rate 73 Respiratory 16 Rate Blood Pressure 156/106 O2 Sat by Pulse 96 Oximetry - Reevaluation(s) Reevaluation #1: 02/10/19 11:41 Initial past medical history frequent falls hypokalemia nonspecific epilepsy social hypertension and anxiety disorder unspecified dementia basal cell cancer please see the accompanying paperwork Procedures - Orthopedic Splinting/Casting Injury #1 Side: right (4 x 15 short arm volar splint placed on the right forearm. Patient did tolerate it well was good neurovascular exam afterwards. This was placed by me, Dr. Gibbs) Upper Extremity Injury Location: short arm, wrist Upper Extremity Immobilizer: volar splint Medical Decision Making - Medical Decision Making I did discuss findings with the patient family members patient will be discharged with orthopedic follow-up. She will be taken home by private vehicle - Radiology Data Radiology results: report reviewed (Remainder the x-rays are unremarkable for acute fractures. The hardware for the hips are maintained), image reviewed Disposition Clinical Impression: Distal radius fracture, right, Contusion of right hip, Contusion of right knee, Fall Disposition: HOME SELF-CARE Condition: Good Instructions (If sedation given, give patient instructions): Wrist Fracture in Adults (ED), Contusion in Adults (ED), Fall Prevention (ED) Additional Instructions: Tylenol for pain every 6 hours 650 mg max every 6 hours Is patient prescribed a controlled substance at d/c from ED?: No Referrals: Jan Rodriguez MD [Primary Care Provider] - 1-2 days Darnell Mcdaniel MD [Medical Doctor] - 1-2 days
--- NOTE | 2019-02-10 12:32 | XR ---
EXAMINATION TYPE: XR forearm RT DATE OF EXAM: 02/10/2019 CLINICAL HISTORY: Fall injury with pain. TECHNIQUE: Two views of the right forearm are obtained. COMPARISON: None. FINDINGS: The mineralization is present. There is acute comminuted impacted fracture distal radial me taphysis with some dorsal angulation of distal fracture fragments. Carpal joint spaces are maintained . Visualized elbow joint is within normal limits. Overlying clothing material is present. IMPRESSION: There is acute displaced impacted fracture distal radial metaphysis. (Initial encounter closed type post traumatic fracture)
--- NOTE | 2019-02-10 12:50 | XR ---
EXAMINATION TYPE: XR knee complete RT DATE OF EXAM: 02/10/2019 CLINICAL HISTORY: Pain after falling injury. TECHNIQUE: Three views of the right knee are obtained. COMPARISON: Right femur x-ray July 11, 2018. FINDINGS: Demineralization is redemonstrated. There is no acute fracture/dislocation evident in right knee. Moderate to severe narrowing medial tibiofemoral compartment with mild to moderate spurring. M oderate narrowing and spurring patellofemoral compartment. Meniscal calcifications. Well-defined bony formation distal lateral femoral condyle redemonstrated. The overlying soft tissue appears unremarka ble. IMPRESSION: There is no acute fracture or dislocation in the right knee. No significant change from prior x-ray at level of knee.
--- NOTE | 2019-02-10 12:52 | XR ---
EXAMINATION TYPE: XR Hip RT and AP Pelvis DATE OF EXAM: 02/10/2019 COMPARISON: Pelvic x-ray July 13, 2018. HISTORY: Fall injury with pelvic and right hip pain. TECHNIQUE: A single AP view of the pelvis is obtained. Two views of the right hip are obtained. FINDINGS: There is no acute fracture/dislocation evident in the pelvis. Metallic artifact from bilat eral hip arthroplasties is redemonstrated. Interval surgery right proximal femur with new lateral fix ating plate and cerclage wires. Old fracture deformity of the superior and inferior pelvic rami on th e right and old fracture inferior pelvic ramus on the left. Sacroiliac joints show symmetric mild to moderate narrowing. Overlying pelvic phleboliths are present.. Two views of right hip show no new acute fracture or dislocation. No suspicious new periprosthetic l ucency. The overlying soft tissue is unremarkable. IMPRESSION: There is no new acute fracture or dislocation in the pelvis or right hip.
[2019-02-10 13:30] VITALS: BP 147/95; PULSE 81
== END 2019-02-10 13:30 | disposition home or self-care (01) ==
LOC: EC 11:06 → SUPCPDRO 11:06 → EC 13:30
DX: S59.201A Unspecified physeal fracture of lower end of radius, right arm, initial encounter for closed fracture (principal); S70.01XA Contusion of right hip, initial encounter; S80.01XA Contusion of right knee, initial encounter; E03.9 Hypothyroidism, unspecified; F32.9 Major depressive disorder, single episode, unspecified; I10 Essential (primary) hypertension; Z87.891 Personal history of nicotine dependence; Z79.899 Other long term (current) drug therapy; Z79.890 Hormone replacement therapy; Z96.641 Presence of right artificial hip joint; W18.30XA Fall on same level, unspecified, initial encounter; Y92.89 Other specified places as the place of occurrence of the external cause
CPT/HCPCS: 29125; 73502; 99283

== ENCOUNTER 2020-07-16 14:50 | Emergency (ER) | payer MEDICARE, OTHER ==
[2020-07-16 15:13] VITALS: RESP 18
[2020-07-16] MEDS ORDERED: ACETAMINOPHEN TAB 325 MG TAB PO STA (15:32)
--- NOTE | 2020-07-16 16:14 | XR ---
Bilateral knees HISTORY: Trauma and pain 4 views of each knee submitted, correlation prior right knee 02/10/2019 Right knee shows a stable appearance, bone mineralization is reduced. Joint space loss is greater in the lateral compartment. Irregular appearance of the medial femoral condyle is chronic. There is kelsey drocalcinosis present bilaterally. Alignment is maintained. Suprapatellar increased density is consis tent with joint effusions bilaterally. Marked spurring present at the patellofemoral joints with join t space loss. Findings suggest crystal deposition arthropathy, osteoarthritis. Atherosclerotic vascul ar calcifications are present. IMPRESSION: No acute fracture or dislocation is evident, low bone mineralization. Follow-up as indica laureen.
--- NOTE | 2020-07-16 16:15 | XR ---
Bilateral legs HISTORY: Trauma and pain Frontal and lateral views of each leg submitted on a total of 6 images, correlation to knees of same date. Bone mineralization is reduced. Alignment is maintained. Arthropathy again noted within the knees. Pl bubba calcaneal spur is noted on the left, there is enthesophyte at insertion of the Achilles tendon on the right. IMPRESSION: No fracture or dislocation.
--- NOTE | 2020-07-16 16:20 | XR ---
Left ankle HISTORY: Trauma and pain 3 views left ankle Bone mineralization is reduced. Joint spaces and alignment are maintained. Plantar calcaneal spur is noted. There is an enthesophyte at insertion of the Achilles tendon. IMPRESSION: No acute fracture or dislocation. Follow-up as indicated.
--- NOTE | 2020-07-16 16:47 | CT ---
EXAMINATION TYPE: CT brain cspine wo con DATE OF EXAM: 07/16/2020 COMPARISON: Previous exam 06/27/2018 HISTORY: Patient poor historian. CT DLP: 1318.2 mGycm Automated exposure control for dose reduction was used. TECHNIQUE: CT scan of the head and cervical spine are performed without contrast. FINDINGS: There is no acute intracranial hemorrhage, mass effect, or midline shift identified. The ventricles and sulci are stable in size. The globes are intact and the visualized sinuses are clear . Fracture of the mandibular condyle seen on prior exam has fused in irregular position, there is rem odeling change since the prior exam. Periventricular white matter shows patchy low attenuation. Cervical spine is visualized in its entirety from C1 through upper thoracic levels and demonstrates s atisfactory alignment without evidence of acute fracture or dislocation. Prevertebral soft tissue ap pears within normal limits. The C1-C2 articulation is unremarkable. There are old posterior left-bennie ed rib fractures. Previous anterior inferior corner fracture at C6 appears healed. IMPRESSION: 1. There is no acute fracture or dislocation evident in the cervical spine. 2. No acute intracranial hemorrhage, mass effect, or midline shift is seen.
--- NOTE | 2020-07-16 16:54 | CT ---
EXAMINATION TYPE: CT pelvis wo con DATE OF EXAM: 07/16/2020 COMPARISON: INDICATION: Patient poor historian. DLP: 1318.2 DLP: 510.2 mGycm, Automated exposure control for dose reduction was used. CONTRAST: 0 mL of Isovue 370. Study performed without Oral Contrast TECHNIQUE: Axial images were obtained from above the diaphragm to the pubic rami in the axial plane a t 5 mm thick sections. Reconstructed images are reviewed on the computer in the coronal plane. FINDINGS: CT PELVIS: Bilateral hip prostheses are present. No acute hip fractures are evident. Old pubic symphy sis fractures are evident. Note is made of some sacroiliac joint degenerative changes. In the sagittal plane there may be a buckle fracture of the superior S3 level. Series 207 image 74. Loops of bowel within the abdomen and pelvis are normal. There are loops of bowel which are incom pletely distended or lack oral contrast limiting their evaluation. Appendix: Not identified. No suspicious dilated tubular structure inflammatory changes evident. Diver ticulum are within the sigmoid colon. Urinary bladder: Normal. Genitourinary structures: Uterus and ovaries are not identified. IMPRESSIONS: 1. Suspected subtle buckle fracture of the anterior S3 sacrum.
[2020-07-16] MEDS ORDERED: LIDOCAINE 1% INJ 10MG/ML (20 ML MDV) SQ ONE (16:56)
[2020-07-16] MEDS ORDERED: MORPHINE SULFATE 4 MG/ML SYRINGE IVP STA (17:04)
--- NOTE | 2020-07-16 17:15 | ED ---
Fall HPI - General Chief Complaint: Fall Stated Complaint: Fall Time Seen by Provider: 07/16/20 15:07 Source: patient Mode of arrival: EMS - History of Present Illness Initial Comments: The patient is an 79 5L female past medical history of COPD, hypertension who presents to the emergency department after she sustained a fall. Patient is from [facility]. Normally uses a wheelchair but is able to transfer from her wheelchair to the bed. Patient reports that she was attempting to transfer herself when she had an unwitnessed fall. Reports to losing her balance and fell forward. Other residents at the facility were walking by the patient's room and saw her. They were able to assist her up. They noted that she had a bruise to her chin on a puncture wound to her left calf. Patient denies losing any consciousness. He is admitting to 6 out of 10 headache. Patient also reports to pain in her tailbone. Denies any numbness, tingling or weakness in her lower extremities. Denies any chest pain or shortness of breath. No visual changes. Denies any pain, numbness or tingling in her upper extremities. Last time the patient had a tetanus vaccine she had a bad reaction and therefore they are refusing one. Patient is not on any blood thinners. No other alleviating, precipitating or modifying factors - Related Data Home Medications Medication Instructions Recorded Confirmed Levothyroxine Sodium [Synthroid] 25 mcg PO HS@199905/05/15 07/16/20 Acetaminophen Tab [Tylenol] 650 mg PO TID@0500,1300,2100 PRN 07/11/18 07/16/20 Docusate [Colace] 100 mg PO BID@07/11/18 07/16/20 HYDROcodone/APAP 5-325MG [[place] 1 tab PO BID PRN 02/10/19 07/16/20 5-325] Melatonin 3 mg PO HS@199902/10/19 07/16/20 PARoxetine HCL [Paxil] 40 mg PO HS@199902/10/19 07/16/20 traZODone HCL 50 mg PO HS@199902/10/19 07/16/20 Cholecalciferol (Vitamin D3) 125 mcg PO DAILY@0800 07/16/20 07/16/20 [Vitamin D3 (5000 Iu)] Fesoterodine Fumarate [Toviaz] 4 mg PO DAILY@0800 07/16/20 07/16/20 Previous Rx's Medication Instructions Recorded Sennosides-Docusate Sodium 1 tab PO BID #60 tablet 07/20/18 [Senokot-S] HYDROcodone/APAP 7.5-325MG [[place] 1 tab PO Q4H PRN 3 Days #18 tab 07/16/20 7.5-325] Allergies Allergy/AdvReac Type Severity Reaction Status Date / Time Tetanus Vaccines and Toxoid AdvReac Unknown Verified 07/16/20 16:06 Review of Systems ROS Statement: Those systems with pertinent positive or pertinent negative responses have been documented in the HPI. ROS Other: All systems not noted in ROS Statement are negative. Past Medical History Past Medical History: COPD, Hyperlipidemia, Hypertension, Thyroid Disorder Additional Past Medical History / Comment(s): 05/05/15 R hip pain following fall. Pt states she lost balance and fell. She is being admitted with fracture neck R femur. Other HX: closed head injuries with falls and once with brain bleed following fall- on keppra prophlactically, odontoid fx 2013, L hip fx after fall with surgey, hypothyroidism, UTI. History of Any Multi-Drug Resistant Organisms: ESBL Date of last positivie culture/infection: 07/12/18 MDRO Source:: ESBL URINE Past Surgical History: Adenoidectomy, Appendectomy, Cholecystectomy, Hysterectomy, Joint Replacement, Orthopedic Surgery, Tonsillectomy Additional Past Surgical History / Comment(s): partial left hip replacement Past Anesthesia/Blood Transfusion Reactions: No Reported Reaction Additional Past Anesthesia/Blood Transfusion Reaction / Comment(s): Pt has received blood without reaction. Past Psychological History: Depression Smoking Status: Never smoker Past Alcohol Use History: None Reported Past Drug Use History: None Reported - Past Family History Father Family Medical History: CVA/TIA Additional Family Medical History / Comment(s): Father had several CVAs and at age 72 yrs. Mother Family Medical History: Cancer Additional Family Medical History / Comment(s): Mother had cancer (do not know type) and at age 72 yrs. General Exam Limitations: no limitations General appearance: alert, in no apparent distress Head exam: Present: atraumatic, normocephalic, normal inspection Eye exam: Present: normal appearance, PERRL, EOMI. Absent: scleral icterus, conjunctival injection, periorbital swelling ENT exam: Present: normal exam, mucous membranes moist Neck exam: Present: normal inspection. Absent: tenderness, meningismus, lymphadenopathy Respiratory exam: Present: normal lung sounds bilaterally. Absent: respiratory distress, wheezes, rales, rhonchi, stridor Cardiovascular Exam: Present: regular rate, normal rhythm, normal heart sounds. Absent: systolic murmur, diastolic murmur, rubs, gallop, clicks GI/Abdominal exam: Present: soft, normal bowel sounds. Absent: distended, tenderness, guarding, rebound, rigid Extremities exam: Present: full ROM, tenderness (left calf - 7.0 x 3.0 cm v- shaped laceration which involved underlying subq tissue), normal capillary refill, other (5/5 strength b/l le. 2+ DP and PT pulses). Absent: pedal edema, joint swelling, calf tenderness Back exam: Present: normal inspection Neurological exam: Present: alert, oriented X3, CN II-XII intact Psychiatric exam: Present: normal affect, normal mood Skin exam: Present: warm, dry, intact, normal color. Absent: rash Course Vital Signs 07/16/20 07/16/20 07/16/20 15:08 16:20 17:35 Temperature 99.1 F Pulse Rate 74 69 71 Respiratory 18 18 18 Rate Blood Pressure 176/77 179/88 166/86 O2 Sat by Pulse 97 100 97 Oximetry 07/16/20 18:55 Temperature 98 F Pulse Rate 62 Respiratory 18 Rate Blood Pressure 152/78 O2 Sat by Pulse 96 Oximetry Procedures - Laceration Laceration #1 Consent Obtained: verbal consent Indication: laceration Site: lower extremity Description: flap Depth: simple, single layer Anesthetic Used: lidocaine 1% Anesthesia Technique: local infiltration Amount (mls): 8 Pre-repair: wound explored, irrigated extensively, deep structures intact, wound margins revised Type of Sutures: nylon Size of Sutures: 5-0 Number of Sutures: 6 Technique: simple, interrupted Patient Tolerated Procedure: well, no complications Medical Decision Making - Medical Decision Making Upon arrival the patient is placed into room 5. A thorough history and physical exam was performed. Patient is neurovascularly intact in all of her extremities. She complains of pain in her sacrum. Patient was given Tylenol for pain control. Sent over for a CT of her head and cervical spine as well as the pelvis. X-rays are performed patient's ankle, bilateral tib-fib and bilateral knees. EKG is performed as bedside supervisor slitting and shipping demonstrates A. fib however EKG demonstrates sinus rhythm with PACs. Imaging was reviewed. CT of the pelvis demonstrates subtle buckle fracture of the anterior S3 sacrum. Patient is rolled and the entire spine is palpated. She continues to have pain in the sacral region however no thoracic or lumbar pain. Patient does not have any cervical pain. She was given a dose of morphine as she continues to have pain after the Tylenol administration. Repair is performed of the patient's left posterior calf laceration using 5-0 nylon sutures. There was good approximation of the wound using 6 sutures. Patient is reevaluated and states that she feels comfortable going home at this time. Patient will be given a prescription for [place]. Daughter is at bedside and agrees with her decision. Patient is to follow-up with Dr. Rodriguez. She must have her sutures removed in 7- 10 days. I did call and discuss the patient's case with Dr. Richards. Reports that as long as she is neurovascularly intact at she may be discharged home. Would like to see the patient in 1-2 weeks in his office. Patient is given his follow up information. She is informed if she has any new or worsening symptoms, or uncontrolled pain at home that she return to the emergency department. Patient agreed to this. She was given written and verbal discharge instructions and discharged home in stable condition - EKG Data EKG Comments: EKG demonstrates a sinus rhythm with PACs. Rate of 75. [place] interval 184. QRS 70. QTC of 422. No acute ST segment elevations or depressions Disposition Clinical Impression: Fall, Laceration of left leg, Hematoma, Sacral fracture, closed Disposition: HOME SELF-CARE Condition: Stable Instructions (If sedation given, give patient instructions): Care For Your Stitches (ED), Laceration (ED), Fall Prevention for Older Adults (ED) Additional Instructions: Please follow up with Dr. Rodriguez in 7-10 days to have your stitches removed. Follow up with Dr. Richards in 1-2 weeks for re-evaluation. Return to the ED for any new or worsening symptoms. Prescriptions: HYDROcodone/APAP 7.5-325MG [[place] 7.5-325] 1 tab PO Q4H PRN 3 Days #18 tab PRN Reason: Pain Is patient prescribed a controlled substance at d/c from ED?: Yes When asked, does pt state using other controlled substances?: No If prescribed controlled substance>3 days was MAPS reviewed?: Prescribed <3 Days If opioid is for acute pain is fill amount 7 days or less?: Yes If Rx opioid, was Start Talking consent form obtained?: Yes Referrals: Jan Rodriguez MD [Primary Care Provider] - 1-2 days Dedrick Richards DO [Doctor of Osteopathic Medicine] - 1-2 days Time of Disposition: 18:28
[2020-07-16 18:57] VITALS: BP 152/78; PULSE 62; TEMP 98
== END 2020-07-16 19:45 | disposition home or self-care (01) ==
LOC: EC 14:50
DX: S81.812A Laceration without foreign body, left lower leg, initial encounter (principal); S32.10XA Unspecified fracture of sacrum, initial encounter for closed fracture; F32.9 Major depressive disorder, single episode, unspecified; E78.5 Hyperlipidemia, unspecified; I10 Essential (primary) hypertension; E03.9 Hypothyroidism, unspecified; Z79.890 Hormone replacement therapy; Z79.899 Other long term (current) drug therapy; Z88.7 Allergy status to serum and vaccine; Z90.49 Acquired absence of other specified parts of digestive tract; Z90.710 Acquired absence of both cervix and uterus; Z96.642 Presence of left artificial hip joint; W19.XXXA Unspecified fall, initial encounter
CPT/HCPCS: 99284; 96374; 12002; 93005; 73590; 73564; 73610; 72192; 72125; 70450; J2270; J2001

== ENCOUNTER 2021-12-31 | Emergency (ER) | payer MEDICARE, OTHER ==
[2021-12-31 00:14] VITALS: RESP 16; TEMP 98.7
--- NOTE | 2021-12-31 00:38 | ED ---
Fall HPI - General Chief Complaint: Fall Stated Complaint: Fall Time Seen by Provider: 12/31/21 00:15 Source: patient, EMS Mode of arrival: EMS - History of Present Illness MD Complaint: fall -: minutes(s) Fall From: out of bed When Fall Occurred: unsure Fall Witnessed: no Place Fall Occurred: home Loss of Consciousness: none Prolonged Down Time?: no Location: head Context: history of frequent falls Associated Symptoms: headache - Related Data Home Medications Medication Instructions Recorded Confirmed Levothyroxine Sodium [Synthroid] 25 mcg PO HS@199905/05/15 07/16/20 Acetaminophen Tab [Tylenol] 650 mg PO TID@0500,1300,2100 PRN 07/11/18 07/16/20 Docusate [Colace] 100 mg PO BID@799,199907/11/18 07/16/20 HYDROcodone/APAP 5-325MG [[place] 1 tab PO BID PRN 02/10/19 07/16/20 5-325] Melatonin 3 mg PO HS@199902/10/19 07/16/20 PARoxetine HCL [Paxil] 40 mg PO HS@199902/10/19 07/16/20 traZODone HCL 50 mg PO HS@199902/10/19 07/16/20 Cholecalciferol (Vitamin D3) 125 mcg PO DAILY@0807/16/20 07/16/20 [Vitamin D3 (5000 Iu)] Fesoterodine Fumarate [Toviaz] 4 mg PO DAILY@0800 07/16/20 07/16/20 Previous Rx's Medication Instructions Recorded Sennosides-Docusate Sodium 1 tab PO BID #60 tablet 07/20/18 [Senokot-S] HYDROcodone/APAP 7.5-325MG [[place] 1 tab PO Q4H PRN 3 Days #18 tab 07/16/20 7.5-325] Allergies Allergy/AdvReac Type Severity Reaction Status Date / Time Tetanus Vaccines and Toxoid AdvReac Unknown Verified 07/16/20 16:06 Review of Systems ROS Statement: Those systems with pertinent positive or pertinent negative responses have been documented in the HPI. ROS Other: All systems not noted in ROS Statement are negative. Constitutional: Denies: fever Eyes: Denies: eye pain, vision change Respiratory: Denies: cough, dyspnea Cardiovascular: Denies: chest pain, palpitations Gastrointestinal: Denies: abdominal pain, vomiting Musculoskeletal: Denies: back pain Skin: Denies: rash Neurological: Reports: headache. Denies: weakness, numbness, paresthesias, confusion Hematological/Lymphatic: Denies: easy bleeding Past Medical History Past Medical History: COPD, Hyperlipidemia, Hypertension, Thyroid Disorder Additional Past Medical History / Comment(s): 05/05/15 R hip pain following fall. Pt states she lost balance and fell. She is being admitted with fracture neck R femur. Other HX: closed head injuries with falls and once with brain bleed following fall- on keppra prophlactically, odontoid fx 2013, L hip fx after fall with surgey, hypothyroidism, UTI. History of Any Multi-Drug Resistant Organisms: ESBL Date of last positivie culture/infection: 07/12/18 MDRO Source:: ESBL URINE Past Surgical History: Adenoidectomy, Appendectomy, Cholecystectomy, Hysterectomy, Joint Replacement, Orthopedic Surgery, Tonsillectomy Additional Past Surgical History / Comment(s): partial left hip replacement Past Anesthesia/Blood Transfusion Reactions: No Reported Reaction Additional Past Anesthesia/Blood Transfusion Reaction / Comment(s): Pt has received blood without reaction. Past Psychological History: Depression Smoking Status: Never smoker Past Alcohol Use History: None Reported Past Drug Use History: None Reported - Past Family History Father Family Medical History: CVA/TIA Additional Family Medical History / Comment(s): Father had several CVAs and at age 72 yrs. Mother Family Medical History: Cancer Additional Family Medical History / Comment(s): Mother had cancer (do not know type) and at age 72 yrs. General Exam Limitations: altered mental status General appearance: alert, in no apparent distress Head exam: Present: normocephalic, other (Left forehead laceration approximately 3 cm which has Steri-Strips are applied. Good hemostasis.) Eye exam: Present: normal appearance, PERRL, EOMI Neck exam: Present: normal inspection, full ROM. Absent: tenderness Respiratory exam: Present: normal lung sounds bilaterally. Absent: respiratory distress, wheezes, rales, rhonchi, stridor, chest wall tenderness Cardiovascular Exam: Present: regular rate, normal rhythm, normal heart sounds. Absent: systolic murmur, diastolic murmur, rubs, gallop GI/Abdominal exam: Present: soft. Absent: distended, tenderness, guarding, rebound, rigid Extremities exam: Present: normal inspection, normal capillary refill. Absent: pedal edema, calf tenderness Back exam: Present: normal inspection. Absent: CVA tenderness (R), CVA tenderness (L), vertebral tenderness Neurological exam: Present: alert, oriented X3, CN II-XII intact. Absent: motor sensory deficit Skin exam: Present: warm, dry, intact, normal color. Absent: rash Course Vital Signs 12/31/21 00:09 Temperature 98.7 F Pulse Rate 54 L Respiratory 16 Rate Blood Pressure 145/78 O2 Sat by Pulse 97 Oximetry Disposition Clinical Impression: Fall, Facial laceration Disposition: HOME SELF-CARE Condition: Good Instructions (If sedation given, give patient instructions): Fall Prevention for Older Adults (ED) Is patient prescribed a controlled substance at d/c from ED?: No Referrals: Jan Rodriguez MD [Primary Care Provider] - 1-2 days
--- NOTE | 2021-12-31 01:50 | CT ---
EXAMINATION TYPE: CT brain wo con DATE OF EXAM: 12/31/2021 COMPARISON: 07/16/2020 HISTORY: FALL 1 FOOT OUT OF BED & HIT HEAD, PER EMS. PRIOR ON PACS CT DLP: 1145.4 mGycm Automated exposure control for dose reduction was used. There is cerebral cortical atrophy. There is no mass effect or midline shift. No evidence of intracra nial hemorrhage. Calvarium is intact. There is normal aeration of the mastoid sinuses. Skull base is intact. IMPRESSION: Cerebral atrophy. No acute intracranial abnormality. No change compared to old exam.
--- NOTE | 2021-12-31 02:34 | XR ---
EXAMINATION TYPE: XR knee complete bilateral DATE OF EXAM: 12/31/2021 COMPARISON: 07/16/2020 HISTORY: Knee pain TECHNIQUE: 6 views FINDINGS: There is some narrowing of the lateral joint space of the right knee with mild genu valgus. There is calcification of the lateral meniscus of the right knee. Left knee shows calcification of t he medial and lateral menisci. There is bilateral narrowing of patellofemoral joint spaces with spurr ing. There is spurring of the left knee femoral and tibial condyles. There is soft tissue calcificati on at the medial femoral condyle of the right knee consistent with old ligamentous injury. IMPRESSION: Osteoarthritis. Chondrocalcinosis. No acute fracture seen. No significant change compared to old exam.
[2021-12-31 03:28] VITALS: BP 129/69; PULSE 60
== END 2021-12-31 03:28 | disposition home or self-care (01) ==
LOC: EC
DX: S01.81XA Laceration without foreign body of other part of head, initial encounter (principal); J44.9 Chronic obstructive pulmonary disease, unspecified; E78.5 Hyperlipidemia, unspecified; I10 Essential (primary) hypertension; E03.9 Hypothyroidism, unspecified; Z88.7 Allergy status to serum and vaccine; Z79.899 Other long term (current) drug therapy; Z79.890 Hormone replacement therapy; W06.XXXA Fall from bed, initial encounter; Y92.009 Unspecified place in unspecified non-institutional (private) residence as the place of occurrence of the external cause
CPT/HCPCS: 70450; 99284

== ENCOUNTER 2022-03-12 13:55 | Emergency (ER) | payer MEDICARE, OTHER ==
[2022-03-12 14:07] VITALS: TEMP 98
--- NOTE | 2022-03-12 14:30 | ED ---
Fall HPI - General Chief Complaint: Fall Stated Complaint: fall Time Seen by Provider: 03/12/22 14:15 Source: patient, family Mode of arrival: wheelchair - History of Present Illness Initial Comments: 86-year-old female with a history of dementia among other things who presents for evaluation after falling out of bed sometime last evening or this morning. Patient was seen by her doctor intermediate she did have an abrasion or small laceration so right restoration/orbital area. Initially she complains of right knee pain. She has chronic neck pain. No reports or modifying factors at this time the patient's daughter is with her and has no complaints of mental status changes or other issues at this time. MD Complaint: fall - Related Data Home Medications Medication Instructions Recorded Confirmed Levothyroxine Sodium [Synthroid] 25 mcg PO HS@199905/05/15 07/16/20 Acetaminophen Tab [Tylenol] 650 mg PO TID@0500,1300,2100 PRN 07/11/18 07/16/20 Docusate [Colace] 100 mg PO BID@08,199907/11/18 07/16/20 HYDROcodone/APAP 5-325MG [[place] 1 tab PO BID PRN 02/10/19 07/16/20 5-325] Melatonin 3 mg PO HS@199902/10/19 07/16/20 PARoxetine HCL [Paxil] 40 mg PO HS@199902/10/19 07/16/20 traZODone HCL 50 mg PO HS@199902/10/19 07/16/20 Cholecalciferol (Vitamin D3) 125 mcg PO DAILY@79907/16/20 07/16/20 [Vitamin D3 (5000 Iu)] Fesoterodine Fumarate [Toviaz] 4 mg PO DAILY@0807/16/20 07/16/20 Previous Rx's Medication Instructions Recorded Sennosides-Docusate Sodium 1 tab PO BID #60 tablet 07/20/18 [Senokot-S] HYDROcodone/APAP 7.5-325MG [[place] 1 tab PO Q4H PRN 3 Days #18 tab 07/16/20 7.5-325] Allergies Allergy/AdvReac Type Severity Reaction Status Date / Time Tetanus Vaccines and Toxoid AdvReac Unknown Verified 03/12/22 14:07 Review of Systems ROS Statement: Those systems with pertinent positive or pertinent negative responses have been documented in the HPI. ROS Other: All systems not noted in ROS Statement are negative. Past Medical History Past Medical History: COPD, Hyperlipidemia, Hypertension, Thyroid Disorder Additional Past Medical History / Comment(s): 05/05/15 R hip pain following fall. Pt states she lost balance and fell. She is being admitted with fracture neck R femur. Other HX: closed head injuries with falls and once with brain bleed following fall- on keppra prophlactically, odontoid fx 2013, L hip fx after fall with surgey, hypothyroidism, UTI. History of Any Multi-Drug Resistant Organisms: ESBL Date of last positivie culture/infection: 07/12/18 MDRO Source:: ESBL URINE Past Surgical History: Adenoidectomy, Appendectomy, Cholecystectomy, Hysterectomy, Joint Replacement, Orthopedic Surgery, Tonsillectomy Additional Past Surgical History / Comment(s): partial left hip replacement Past Anesthesia/Blood Transfusion Reactions: No Reported Reaction Additional Past Anesthesia/Blood Transfusion Reaction / Comment(s): Pt has received blood without reaction. Past Psychological History: Depression Smoking Status: Never smoker Past Alcohol Use History: None Reported Past Drug Use History: None Reported - Past Family History Father Family Medical History: CVA/TIA Additional Family Medical History / Comment(s): Father had several CVAs and at age 72 yrs. Mother Family Medical History: Cancer Additional Family Medical History / Comment(s): Mother had cancer (do not know type) and at age 72 yrs. General Exam - General Exam Comments Initial Comments: This is a well-developed frail-appearing female who is awake and alert pleasantly confused Limitations: no limitations General appearance: alert, in no apparent distress Head exam: Present: other (Small approximately 1.570 laceration with Steri- Strips applied well approximated. No active bleeding no step-off or crepit ation.) Eye exam: Present: normal appearance, PERRL, EOMI. Absent: scleral icterus, conjunctival injection, periorbital swelling ENT exam: Present: normal exam, mucous membranes moist Neck exam: Present: normal inspection, tenderness (Mild paraspinous tenderness no step-off or crepitation no midline tenderness.), full ROM, other (No surgery or bruits). Absent: meningismus, lymphadenopathy Respiratory exam: Present: normal lung sounds bilaterally. Absent: respiratory distress, wheezes, rales, rhonchi, stridor Cardiovascular Exam: Present: regular rate, normal rhythm, normal heart sounds. Absent: systolic murmur, diastolic murmur, rubs, gallop, clicks GI/Abdominal exam: Present: soft, normal bowel sounds. Absent: distended, tenderness, guarding, rebound, rigid Extremities exam: Present: full ROM, normal capillary refill, other (Abrasion seen to the right knee with dressing applied. No step-off no crepitation or full range of motion.). Absent: tenderness, pedal edema, joint swelling, calf tenderness Back exam: Present: normal inspection Neurological exam: Present: alert, oriented X3, CN II-XII intact Psychiatric exam: Present: normal affect, normal mood Skin exam: Present: warm, dry, normal color, other (As stated above). Absent: rash Course Vital Signs 03/12/22 14:02 Temperature 98 F Pulse Rate 72 Respiratory 16 Rate Blood Pressure 141/61 O2 Sat by Pulse 96 Oximetry Medical Decision Making - Medical Decision Making I did discuss findings with the patient's family was present patient will be discharged back to her intermediate. At this time I will leave the current dressings on the wounds. The patient 1 demonstrate good approximation and adequate care of the Steri-Strips. - Radiology Data Radiology results: report reviewed (Imaging reviewed as well as report no evidence of acute problems or findings.), image reviewed Disposition Clinical Impression: Facial abrasion, Abrasion of knee, right, Fall Disposition: HOME SELF-CARE Condition: Good Instructions (If sedation given, give patient instructions): Fall Prevention for Older Adults (ED), Abrasion (ED) Is patient prescribed a controlled substance at d/c from ED?: No Referrals: Jan Rodriguez MD [Primary Care Provider] - 1-2 days Decision Date: 03/12/22 Decision Time: 15:49
--- NOTE | 2022-03-12 15:29 | XR ---
EXAMINATION TYPE: XR knee complete RT DATE OF EXAM: 03/12/2022 COMPARISON: 12/31/2021 HISTORY: Pain TECHNIQUE: 3 views FINDINGS: There is moderate narrowing of the lateral joint space. There is spurring at the femoral an d tibial condyles. There is no evidence of fracture nor dislocation. There is moderate spurring at th e patellofemoral joint. There is some calcification of the menisci. IMPRESSION: Moderate osteoarthritis. No fracture seen. No significant change. Mild chondrocalcinosis.
--- NOTE | 2022-03-12 15:32 | CT ---
EXAMINATION TYPE: CT brain cspine wo con DATE OF EXAM: 03/12/2022 COMPARISON: 07/16/2020 HISTORY: fall Pain CT DLP: 1364 mGycm Automated exposure control for dose reduction was used. Images of the brain and cervical spine obtained with no contrast. There is moderate diffuse cerebral atrophy. There is no mass effect nor midline shift. No sign of int racranial hemorrhage. The calvarium is intact. There is normal aeration of the paranasal sinuses. The cervical vertebra have normal alignment. There is degenerative disc space narrowing at C5-6 and C 6-7. Skull base is intact. Prevertebral soft tissues are intact. IMPRESSION: Spondylotic changes in the lower cervical spine. No fracture seen. Moderate cerebral atrophy. No acute intracranial abnormality. No change compared to old exam.
[2022-03-12 22:46] VITALS: BP 165/80; PULSE 61; RESP 18
== END 2022-03-12 16:15 | disposition home or self-care (01) ==
LOC: EC 13:55
DX: S00.81XA Abrasion of other part of head, initial encounter (principal); S80.211A Abrasion, right knee, initial encounter; J44.9 Chronic obstructive pulmonary disease, unspecified; E78.5 Hyperlipidemia, unspecified; I10 Essential (primary) hypertension; E03.9 Hypothyroidism, unspecified; F32.A Depression, unspecified; Z88.7 Allergy status to serum and vaccine; Z79.890 Hormone replacement therapy; Z79.899 Other long term (current) drug therapy; W06.XXXA Fall from bed, initial encounter
CPT/HCPCS: 70450; 72125; 99284

== ENCOUNTER 2024-04-05 17:53 | Emergency (ER) | payer MEDICARE, OTHER ==
--- NOTE | 2024-04-05 18:36 | ED ---
General Adult HPI - General Chief complaint: ENT Stated complaint: Choking/Aspiration Time Seen by Provider: 04/05/24 18:01 Source: EMS Mode of arrival: EMS Limitations: no limitations - History of Present Illness Initial comments: Patient is an 88-year-old female past medical history of dementia presenting today for choking episode. Patient was at the [employer] when she was eating a piece of meat and was seen to have an episode of choking. Patient had 2 episodes of nonbloody nonbilious emesis afterwards still states that she feels like there is something stuck at the back of her throat. Here in the emergency department she has been spitting up her saliva. She has no difficulty in breathing or chest pain. History is largely provided by patient's daughter at bedside as patient has dementia and is AO x 1 at baseline. Per daughter, personnel at patient's facility state patient's pulse ox went down to 70% during choking episode. - Related Data Home Medications Medication Instructions Recorded Confirmed Levothyroxine Sodium [Synthroid] 25 mcg PO HS@199905/05/15 04/05/24 Docusate [Colace] 100 mg PO BID@0800,1400 07/11/18 04/05/24 HYDROcodone/APAP 5-325MG [Crescent 1 tab PO BID@0800,1600 02/10/19 04/05/24 5-325] Melatonin 3 mg PO HS@199902/10/19 04/05/24 PARoxetine HCL [Paxil] 40 mg PO DAILY@1400 02/10/19 04/05/24 Cholecalciferol (Vitamin D3) 125 mcg PO DAILY 07/16/20 04/05/24 [Vitamin D3 (5000 Iu)] Fesoterodine Fumarate [Toviaz] 4 mg PO DAILY 07/16/20 04/05/24 Acetaminophen [Tylenol 8 Hour] 650 mg PO TID@0500,1300,2100 04/05/24 04/05/24 Benzonatate [Tessalon Perle] 200 mg PO Q8H PRN 04/05/24 04/05/24 Dapagliflozin Propanediol [Farxiga] 5 mg PO DAILY 04/05/24 04/05/24 LORazepam [Ativan] 0.5 mg PO BID@0800,1600 04/05/24 04/05/24 Losartan [Cozaar] 25 mg PO DAILY 04/05/24 04/05/24 Menthol [Biofreeze] 1 applic TOPICAL Q8H PRN 04/05/24 04/05/24 Mirtazapine 7.5 mg PO HS@2000 04/05/24 04/05/24 Naloxone HCl [Narcan] 4 mg NASAL DIRECTED PRN 04/05/24 04/05/24 Sennosides-Docusate Sodium 1 tab PO BID@0800,1400 04/05/24 04/05/24 [Senokot-S] Allergies Allergy/AdvReac Type Severity Reaction Status Date / Time Tetanus Vaccines and Toxoid AdvReac Unknown Verified 04/05/24 20:00 Review of Systems ROS Statement: Those systems with pertinent positive or pertinent negative responses have been documented in the HPI. ROS Other: All systems not noted in ROS Statement are negative. Limitations: ROS unobtainable due to patients medical condition Past Medical History Past Medical History: COPD, Hyperlipidemia, Hypertension, Thyroid Disorder Additional Past Medical History / Comment(s): 05/05/15 R hip pain following fall. Pt states she lost balance and fell. She is being admitted with fracture neck R femur. Other HX: closed head injuries with falls and once with brain bleed following fall- on keppra prophlactically, odontoid fx 2013, L hip fx after fall with surgey, hypothyroidism, UTI. History of Any Multi-Drug Resistant Organisms: ESBL Date of last positivie culture/infection: 07/12/18 MDRO Source:: ESBL URINE Past Surgical History: Adenoidectomy, Appendectomy, Cholecystectomy, Hysterectomy, Joint Replacement, Orthopedic Surgery, Tonsillectomy Additional Past Surgical History / Comment(s): partial left hip replacement Past Anesthesia/Blood Transfusion Reactions: No Reported Reaction Additional Past Anesthesia/Blood Transfusion Reaction / Comment(s): Pt has received blood without reaction. Past Psychological History: Depression Smoking Status: Never smoker Past Alcohol Use History: None Reported Past Drug Use History: None Reported - Past Family History Father Family Medical History: CVA/TIA Additional Family Medical History / Comment(s): Father had several CVAs and at age 72 yrs. Mother Family Medical History: Cancer Additional Family Medical History / Comment(s): Mother had cancer (do not know type) and at age 72 yrs. General Exam - General Exam Comments Initial Comments: PE: CONSTITUTIONAL: No apparent distress, well appearing SKIN: Warm, dry, no jaundice, hives or petechiae EYES: Pupils are equally round, extraocular movements intact without nystagmus, clear conjunctiva, non-icteric sclera HENT: Normocephalic, atraumatic, moist mucus membranes, oropharynx clear without exudates, no foreign bodies noted NECK: , Full range of motion, normal appearance PULMONARY: Questionable scant rhonchi in the bilateral lower lung bases, no whe ezes, rales, no respiratory distress, no accessory muscle use, no stridor, no wheezes, normal excursion CARDIOVASCULAR: Regular rate, rhythm, normal S1 and S2. No appreciated murmurs, rubs or gallops. Strong radial pulses with intact distal perfusion. No lower extremity edema GASTROINTESTINAL: Soft, active bowel sounds throughout, non-tender, non- distended, no palpable masses, no rebound or guarding. No hepatosplenomegaly MUSCULOSKELETAL: Extremities have no gross deformity, no edema, redness, or swelling. No calf swelling NEUROLOGIC:_a/o x 1, GCS 14, pleasantly confused, normal speech. Moves all extremities x 4 without motor or sensory deficit PSYCHIATRIC:_normal mood and affect, thought process is clear and linear Limitations: no limitations Course Vital Signs 04/05/24 04/05/24 17:57 20:30 Temperature 97.8 F 98.2 F Pulse Rate 61 62 Respiratory 20 17 Rate Blood Pressure 168/71 154/76 O2 Sat by Pulse 97 97 Oximetry Medical Decision Making - Medical Decision Making Was pt. sent in by a medical professional or institution (, PA, FLOORING SALESPERSON, urgent care, hospital, or alf...) When possible be specific @ -Patient sent from [facility] Did you speak to anyone other than the patient for history (EMS, parent, family, police, friend...)? What history was obtained from this source @Spoke with patient's daughter at bedside Did you review nursing and triage notes (agree or disagree)? Why? @ -I reviewed and agree with nursing and triage notes Were old charts reviewed (outside hosp., previous admission, EMS record, old EKG, old radiological studies, urgent care reports/EKG's, alf records)? Report findings @Reviewed medical records Differential Diagnosis (chest pain, altered mental status, abdominal pain women, abdominal pain men, vaginal bleeding, weakness, fever, dyspnea, syncope, headache, dizziness, GI bleed, back pain, seizure, CVA, palpatations, mental health, musculoskeletal)? @Differential diagnose remains broad over top considerations include impacted food bolus, aspiration, foreign body sensation, EKG interpreted by me (3pts min.). @ -As above X-rays interpreted by me (1pt min.). @ -No cardiomegaly, consolidations, or foreign body noted CT interpreted by me (1pt min.). @ -None done U/S interpreted by me (1pt. min.). @ -None done What testing was considered but not performed or refused? (CT, X-rays, U/S, labs)? Why? @ -None What meds were considered but not given or refused? Why? @ -None Did you discuss the management of the patient with other professionals (professionals i.e. , PA, FLOORING SALESPERSON, lab, RT, psych nurse, social studies department chair, telephone collector, teacher, security control room officer, high risk case manager)? Give summary @ -No Was smoking cessation discussed for >3mins.? @ -No Was critical care preformed (if so, how long)? @ -No Were there social determinants of health that impacted care today? How? (Homelessness, low income, unemployed, alcoholism, drug addiction, transportation, low edu. Level, literacy, decrease access to med. care, halfway, rehab)? @ -No Was there de-escalation of care discussed even if they declined (Discuss DNR or withdrawal of care, Hospice)? @ -No What co-morbidities impacted this encounter? (DM, HTN, Smoking, COPD, CAD, Cancer, CVA, ARF, Chemo, Hep., AIDS, mental health diagnosis, sleep apnea, morbid obesity)? @ -Demenita Was patient admitted / discharged? Hospital course, mention meds given and route, prescriptions, significant lab abnormalities, going to OR and other pertinent info. @ -Hospital course discharge- Patient is a m 88 y/o female hx dementia, AO x 1at baseline, presenting with daughter after patient experienced a choking episode that occured when patient choked on a piece of meat at her nursing facility with residual foreign body sensation. On my assessment patient well appearing, in NAD, resting comforatbly, VSS, no difficulty in breathing. Questionable scant rhonchi in bilateral lung bases bilaterally, otherwise lungs are clear to auscultation bilaterally normal S1/2 on cardiac exam, 2+ radial pulses. No FB noted in posterior oropharynx. Discussed with patient's daughter plan for glucagon, Zofran, panfilo binta. With patient noted to be briefly hypoxic at her facility, though no hypoxia here, will also obtain CXR. Daughter agreeable with POC. no episodes of emesis after glucagon. Patient is Down Of easy phase. Will attempt Jell-O and if continues to tolerate p.o. intake anticipate discharge . Chest x-ray shows no acute process. On reassessment patient was able to tolerate p.o. Jell-O. Symptoms have resolved. Discussed with patient's daughter plan for discharge home. We discussed signs symptoms to monitor for warranting return to emergency de partment which were also included in patient's discharge paperwork. In my medical judgment there is currently no evidence of an immediate life- threatening or surgical condition. Discharge is therefore indicated at this time. Discharge treatment instructions, follow up instructions, and appropriate emergency department return precautions were discussed with the patient and/or medical decision maker. Patient and/or medical decision maker expressed understanding of and agreed with the treatment plan, follow up instructions, and emergency department return precaution. All patient's and/or medical decision maker's questions were answered. Undiagnosed new problem with uncertain prognosis? @ -No Drug Therapy requiring intensive monitoring for toxicity (Heparin, Nitro, Insulin, Cardizem)? @ -No Were any procedures done? @ -No Diagnosis/symptom? @ -Choking episode Acute, or Chronic, or Acute on Chronic? @ -Acute Uncomplicated (without systemic symptoms) or Complicated (systemic symptoms)? @ -Complicated Side effects of treatment? @ -No Exacerbation, Progression, or Severe Exacerbation? @ -No Poses a threat to life or bodily function? How? (Chest pain, [place], [place], pneumonia, PE, COPD, DKA, ARF, appy, cholecystitis, CVA, Diverticulitis, Homicidal, Suicidal, threat to staff... and all critical care pts) @ -Prior to assessment, yes an episode of choking does pose a threat to life however after this had resolved and after ED assessment no, does not pose a threat to life or bodily function Disposition Clinical Impression: Choking episode Disposition: HOME SELF-CARE Condition: Stable Additional Instructions: Every disease is a spectrum and a small chance still exists that a serious condition could develop, for this reason, please monitor yourself closely for new, changing or worsening symptoms, fevers, coughing up thick sputum or difficulty in breathing, inability to tolerate/keep down fluids or your medications, inability to follow up with outpatient providers as instructed and should you experience these symptoms or should you have any further concerns for your wellbeing please return to the ED or call 911 immediately. PLEASE call your primary care physician as soon as possible to arrange / discuss plan for followup appointment. Appointment in the next 1-3 days is strongly encouraged if possible. PLEASE let us know here before you leave if there is anything further we can do to be of any assistance. Take care and feel Better! Is patient prescribed a controlled substance at d/c from ED?: No Referrals: Jan Rodriguez MD [Primary Care Provider] - 1-2 days
[2024-04-05] MEDS: ONDANSETRON 4 MG/2 ML VIAL IVP STA (18:55)
[2024-04-05] MEDS: GLUCAGON 1 MG/ML VIAL IM STA (18:55)
--- NOTE | 2024-04-05 19:31 | XR ---
EXAMINATION TYPE: XR chest 2V DATE OF EXAM: 04/05/2024 COMPARISON: 07/19/2018 INDICATION: Choking episode TECHNIQUE: Frontal and lateral views of the chest are obtained. FINDINGS: The heart size is normal. The pulmonary vasculature is normal. The lungs are clear. No aspiration pneumonia identified. No radiopaque foreign bodies identified. IMPRESSION: 1. No acute pulmonary process. [facility], Workstation: [email or web address], 04/05/2024 7:29 PM
[2024-04-05 20:35] VITALS: BP 154/76; PULSE 62; RESP 17; TEMP 98.2
== END 2024-04-05 20:47 | disposition home or self-care (01) ==
LOC: EC 17:53
CPT/HCPCS: 71046; 96372; 96374; 99284